=== PATIENT | male | born 1985 | race Caucasian/White ===

== ENCOUNTER 2023-03-30 13:16 | Outpatient (AMB) | payer OTHER, SELFPAY ==
--- NOTE | 2023-03-30 13:17 | A.OFFPC_ITS ---
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 by: Self / Same As Patient Allergies No Known Allergies Allergy (Verified 03/30/23 14:06) Medication List - Last Reconciled 03/30/23 by Bert Read MD No Known Home Meds Tobacco use date assessed: 03/30/23 Dental Screening Dental Screen Date: 03/30/23 Did you have a dental visit in the last 12 months?: Yes Did you have a dental problem in the last 6 months where you did not have access to dental care?: No Was dental information given to patient?: Patient has dentist [facility] Medical History No pertinent past medical history Surgical History Hx of inguinal herniorrhaphy Hx of wisdom tooth extraction Social History Housing: House Alcohol intake: current Alcohol intake frequency: holidays/special occasions only Patient Tobacco Use Status: Never used Tobacco e-Cigarette/Vaping Use: Never Used service: Yes Current occupational status: employed Current occupational exposures/hazards: No Cognitive needs: No Hearing needs: No Vision needs: No Questionnaire PHQ-9 Over the last 2 weeks, how often have you been bothered by any of the following problems? 1. Little interest or pleasure in doing things: not at all 2. Feeling down, depressed, or hopeless: not at all 3. Trouble falling or staying asleep, or sleeping too much: not at all 4. Feeling tired or having little energy: not at all 5. Poor appetite or overeating: not at all 6. Feeling bad about yourself - or that you are a failure or have let yourself or your family down: not at all 7. Trouble concentrating on things, such as reading the newspaper or watching television: not at all 8. Moving or speaking so slowly that other people could have noticed. Or the opposite - being so fidgety or restless that you have been moving around a lot more than usual: not at all 9. Thoughts that you would be better off or of hurting yourself in some way: not at all Total score: 0 Depression Screening Interpretation: Negative Depression Screening Done: Yes 47929 - PHQ-9 Billing: Yes Source: Developed by Drs. Jim Bloom, Maritza Gardner, Robel Fernandes and colleagues, with an educational enid from [employer]. Thrive Questionnaire Date Thrive assessed: 03/30/23 I am a: Patient What is your living situation today?: I have a steady place to live Within the past 12 months, did the food you bought not last and you didn't have the money to get more?: Never true Within the past 12 months, did you worry whether your food would run out before you got money to buy more?: Never true Do you have trouble paying for medicines?: No Do you have trouble getting transportation to medical appointments?: No Do you have trouble paying your heating and electricity bill?: No Do you have trouble taking care of your child, family member or friend?: No Do you have trouble with day-to-day activities such as bathing, preparing meals, shopping, managing finances, etc.?: No Are you currently unemployed and looking for a job?: No Are you interested in more education?: No Please select the resources that you would like help with: None Currently or been in a relationship where the following occur: no concerns reported THRIVE Score: 0 AUDIT C Alcohol Use Questionnaire (AUDIT-C) 1. How often do you have a drink containing alcohol?: Monthly or less 2. How many drinks containing alcohol do you have on a typical day when you are drinking?: 1 or 2 3. How often do you have six or more drinks on one occasion?: Never Total Score: 1 Score Reviewed/Action Taken: Yes WILLIAM-7 AMB Questionnaire WILLIAM-7 Date WILLIAM - 7 assessed: 03/30/23 Feeling nervous, anxious, or on edge: 0 = Not at all Not being able to stop or control worryin = Not at all Worrying too much about different things: 0 = Not at all Trouble relaxin = Not at all Being so restless that it is hard to sit still: 0 = Not at all Becoming easily annoyed or irritable: 0 = Not at all Feeling afraid as if something awful might happen: 0 = Not at all Total WILLIAM-7 score (0-4 normal; 5-9 mild; 10-14 moderate; 15-21 severe): 0 Source: Developed by Drs. Jim Bloom, Maritza Gardner, Robel Fernandes and colleagues, with an educational enid from [employer]. Review of Systems Const Denies chills, Denies fatigue, Denies fever(s), Denies headache(s), Denies malaise and Denies weakness Eyes Denies blurry vision, Denies change in vision, Denies irritation and Denies itchy eyes ENT Denies dysphagia, Denies dizziness, Denies otalgia, Denies headache(s), Denies nasal congestion, Denies neck pain, Denies odynophagia and Denies sore throat Card Denies chest pain, Denies rapid heart rate, Denies irregular heart rhythm, Denies palpitations and Denies dyspnea Resp Denies chest congestion, Denies cough, Denies dyspnea and Denies wheezing GI Denies abdominal pain, Denies bloating, Denies constipation, Denies dysphagia, Reports heartburn (on and off lately - taking OTC Tums PRN), Denies diarrhea, Denies nausea, Denies odynophagia and Denies vomiting Denies hematuria, Denies difficulty urinating, Denies dysuria, Denies urinary frequency and Denies urinary urgency Musc Denies back pain, Denies arthralgias, Denies joint swelling, Denies muscle weakness and Denies neck pain Skin/Breast Denies change in pigmentation, Denies lesions, Denies rash and Denies unusual bruising Neuro Denies dizziness, Denies headache(s), Denies paresthesias and Denies weakness Endo Denies fatigue and Denies palpitations Aller/Immun Denies itchy eyes and Denies wheezing Physical exam (Primary Care) Vital Signs: Last Vital Signs Pulse 76 03/30/23 13:18 BP 132/80 03/30/23 13:18 Pulse Ox 96 03/30/23 13:18 Oxygen Delivery Method Room Air 03/30/23 13:18 BMI result Body Mass Index 27.8 Tobacco/Smoking Status: Tobacco use Status Tobacco use date assessed 03/30/23 03/30/23 13:27 Patient Tobacco Use Status Never used Tobacco 03/30/23 13:27 e-Cigarette/Vaping Use Never Used 03/30/23 13:27 PHQ-9: PHQ-9 Score PHQ-9: Total score 0 03/30/23 13:27 Depression Screening Interpretation: Negative Thrive Assessment: Date of Thrive Assessment Date Thrive assessed 03/30/23 03/30/23 13:27 Currently or been in a relationship where the following occur: no concerns reported Const General: no acute distress, alert and awake Orientation/consciousness: patient oriented x3 HENMT Head: Yes normocephalic and Yes atraumatic Ears: external ears normal, TM's normal bilaterally and EAC's normal General nose exam: No nasal discharge present Face and sinus: Yes normal facial exam and Yes sinuses nontender Teeth and gingiva: dentition normal Throat: Yes posterior oropharynx normal and Yes tonsils normal (no TP congestion) Eyes Eyelids: Yes eyelids normal Conjunctivae: conjunctivae normal Pupils: Equal, round and reactive pupils present EOM: EOMs intact bilaterally Neck Neck: Yes no lymphadenopathy and Yes supple Thyroid: Thyroid normal Resp Auscultation: clear to auscultation bilaterally, no rales and no wheezes Cardio Rate: regular rate Rhythm: regular rhythm Heart sounds: no murmurs GI Palpation (GI): Soft to palpation, nontender and No hepatosplenomegaly present Auscultation: normal bowel sounds General: Yes no CVA tenderness Back/Spine/Pelvis Back: no CVA tenderness Thoracic/Lumbar Spine: thoracic and lumbar spine normal to inspection Skin Lesions: no lesions Rashes: no rashes Neuro General: patient oriented x3, moves all extremities, no focal motor deficits and CN's II-XI intact bilaterally Cranial nerves: Yes Equal, round and reactive pupils present Cognition (Neuro): normal cognition Gait exam (Neuro): Normal gait present Extrem General: Yes no clubbing, cyanosis or edema Assessment and Plan Assessment & Plan (1) Annual physical exam: Code(s): Z00.00 - Encounter for general adult medical examination without abnormal findings Orders: Orders Comprehensive [place]. Panel Fast Today E78.00 - Pure hypercholesterolemia, unspecified, Z00.00 - Encounter for general adult medical examination without abnormal findings TSH reflex Free T4 Today E78.00 - Pure hypercholesterolemia, unspecified, Z00.00 - Encounter for general adult medical examination without abnormal findings Complete Blood Count Auto Diff Today D64.9 - Anemia, unspecified, Z00.00 - Encounter for general adult medical examination without abnormal findings Lipid Panel Today E78.00 - Pure hypercholesterolemia, unspecified, Z00.00 - Encounter for general adult medical examination without abnormal findings UA CC w/rflx Micro + Cult Today R30.0 - Dysuria, Z00.00 - Encounter for general adult medical examination without abnormal findings Vitamin D 25-OH Total Today E55.9 - Vitamin D deficiency, unspecified, Z00.00 - Encounter for general adult medical examination without abnormal findings Coding Diagnoses Annual physical exam Z00.00
[2023-03-30 13:18] VITALS: BP 132/80; PULSE 76; O2SAT 96; BMI 27.8
== END 2023-03-30 14:30 | disposition home or self-care (01) ==
PROVIDERS: PCP Internal Medicine; Visit Provider Internal Medicine
DX: Z00.00 Encounter for general adult medical examination without abnormal findings (principal); E66.3 Overweight
CPT/HCPCS: 99499

== ENCOUNTER 2024-04-05 08:52 | Outpatient (AMB) | payer OTHER, SELFPAY ==
[2024-04-05 08:56] VITALS: BP 130/84; PULSE 81; O2SAT 97; BMI 29.8
--- NOTE | 2024-04-05 08:56 | A.OFFPC_ITS ---
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 by: Self / Same As Patient Allergies No Known Allergies Allergy (Verified 04/05/24 09:25) Medication List - Last Reconciled 04/05/24 by Bert Read MD No Known Home Meds Tobacco use date assessed: 04/05/24 Dental Screening Dental Screen Date: 04/05/24 Did you have a dental visit in the last 12 months?: Yes Did you have a dental problem in the last 6 months where you did not have access to dental care?: No Was dental information given to patient?: Patient has dentist HPI ANNUAL HPI Details Patient comes in today for his annual physical examination States that he feels okay He denies any headaches or dizziness Denies any chest pains, no shortness of breath No nausea/vomiting, no abdominal pain No change in bowel habits noted He denies any acute urinary symptoms States that his wants him to bring up the subject of his snoring heavily when he sleeps at night as it has been bothering her and keeping her up for the past year now Patient states that he does feel fatigued often draw today and feels like he needs a nap every now and then although he does not take that he has any trouble sleeping at night States that his only mentioned he sounds like he is gurgling at times when he is sleeping and snoring but has not mentioned to him about any apneic spells Lastly, patient adds that he has some recurrent eczema or fungal lesions on his feet as well as on his toenails and he would like to see Dermatology for this States that he mentioned this to his previous PCP a couple of years ago but his PCP only ended up prescribing him some antifungal treatment which he did not feel helped much [facility] Medical History (Updated 04/05/24 @ 11:53 by Bert Read MD) Overweight (BMI 25.0-29.9) Pure hypercholesterolemia Surgical History Hx of inguinal herniorrhaphy Hx of wisdom tooth extraction Social History Housing: House Alcohol intake: current Alcohol intake frequency: holidays/special occasions only Patient Tobacco Use Status: Never used Tobacco e-Cigarette/Vaping Use: Never Used service: Yes Current occupational status: employed Current occupational exposures/hazards: No Cognitive needs: No Hearing needs: No Vision needs: No Questionnaire PHQ-9 Over the last 2 weeks, how often have you been bothered by any of the following problems? 1. Little interest or pleasure in doing things: not at all 2. Feeling down, depressed, or hopeless: not at all 3. Trouble falling or staying asleep, or sleeping too much: not at all 4. Feeling tired or having little energy: not at all 5. Poor appetite or overeating: not at all 6. Feeling bad about yourself - or that you are a failure or have let yourself or your family down: not at all 7. Trouble concentrating on things, such as reading the newspaper or watching television: not at all 8. Moving or speaking so slowly that other people could have noticed. Or the opposite - being so fidgety or restless that you have been moving around a lot more than usual: not at all 9. Thoughts that you would be better off or of hurting yourself in some way: not at all Total score: 0 Depression Screening Interpretation: Negative Depression Screening Done: Yes 73654 - PHQ-9 Billing: Yes Source: Developed by Drs. Jim Bloom, Maritza Gardner, Robel Fernandes and colleagues, with an educational enid from [employer]. Thrive Questionnaire Date Thrive assessed: 04/05/24 I am a: Patient What is your living situation today?: I have a steady place to live Within the past 12 months, did the food you bought not last and you didn't have the money to get more?: Never true Within the past 12 months, did you worry whether your food would run out before you got money to buy more?: Never true Do you have trouble paying for medicines?: No Do you have trouble getting transportation to medical appointments?: No Do you have trouble paying your heating and electricity bill?: No Do you have trouble taking care of your child, family member or friend?: No Do you have trouble with day-to-day activities such as bathing, preparing meals, shopping, managing finances, etc.?: No Are you currently unemployed and looking for a job?: No Are you interested in more education?: No Please select the resources that you would like help with: None Currently or been in a relationship where the following occur: No concerns reported THRIVE Score: 0 AUDIT C Alcohol Use Questionnaire (AUDIT-C) 1. How often do you have a drink containing alcohol?: 2-3 times a week 2. How many drinks containing alcohol do you have on a typical day when you are drinking?: 1 or 2 3. How often do you have six or more drinks on one occasion?: Never Total Score: 3 Score Reviewed/Action Taken: Yes WILLIAM-7 AMB Questionnaire WILLIAM-7 Date WILLIAM - 7 assessed: 04/05/24 Feeling nervous, anxious, or on edge: 0 = Not at all Not being able to stop or control worryin = Not at all Worrying too much about different things: 0 = Not at all Trouble relaxin = Not at all Being so restless that it is hard to sit still: 0 = Not at all Becoming easily annoyed or irritable: 0 = Not at all Feeling afraid as if something awful might happen: 0 = Not at all Total WILLIAM-7 score (0-4 normal; 5-9 mild; 10-14 moderate; 15-21 severe): 0 Source: Developed by Drs. Jim Bloom, Maritza Gardner, Robel Fernandes and colleagues, with an educational enid from [employer]. Review of Systems Const Denies chills, Reports daytime sleepiness (occasionally), Denies difficulty sleeping, Denies fatigue, Denies fever(s), Denies headache(s), Denies malaise, Reports snoring, Denies stops breathing during sleep (although his mentions that he gurgles a lot when snoring/sleeping) and Denies weakness Eyes Denies blurry vision, Denies change in vision, Denies irritation and Denies itchy eyes ENT Denies dysphagia, Denies dizziness, Denies otalgia, Denies headache(s), Denies nasal congestion, Denies neck pain, Denies odynophagia and Denies sore throat Card Denies chest pain, Denies rapid heart rate, Denies irregular heart rhythm, Denies palpitations and Denies dyspnea Resp Denies chest congestion, Denies cough, Denies dyspnea, Reports snoring and Denies wheezing GI Denies abdominal pain, Denies bloating, Denies constipation, Denies dysphagia, Denies heartburn, Denies diarrhea, Denies nausea, Denies odynophagia and Denies vomiting Denies hematuria, Denies difficulty urinating, Denies dysuria, Denies urinary frequency and Denies urinary urgency Musc Denies back pain, Denies arthralgias, Denies joint swelling, Denies muscle weakness and Denies neck pain Skin/Breast Denies change in pigmentation, Denies lesions, Reports rash (recurrent on both feet; thickened/discolored toenails) and Denies unusual bruising Neuro Denies dizziness, Denies headache(s), Denies paresthesias and Denies weakness Endo Denies fatigue and Denies palpitations Aller/Immun Denies itchy eyes and Denies wheezing Physical exam (Primary Care) Vital Signs: Last Vital Signs Pulse 81 04/05/24 08:56 BP 130/84 04/05/24 08:56 Pulse Ox 97 04/05/24 08:56 Oxygen Delivery Method Room Air 04/05/24 08:56 BMI result Body Mass Index 29.8 Tobacco/Smoking Status: Tobacco use Status Tobacco use date assessed 04/05/24 04/05/24 09:03 Patient Tobacco Use Status Never used Tobacco 04/05/24 09:03 e-Cigarette/Vaping Use Never Used 04/05/24 09:03 PHQ-9: PHQ-9 Score PHQ-9: Total score 0 04/05/24 09:29 Depression Screening Interpretation: Negative Thrive Assessment: Date of Thrive Assessment Date Thrive assessed 04/05/24 04/05/24 09:03 Currently or been in a relationship where the following occur: No concerns reported Const General: no acute distress, alert and awake Orientation/consciousness: patient oriented x3 HENMT Head: Yes normocephalic and Yes atraumatic Ears: external ears normal, TM's normal bilaterally and EAC's normal General nose exam: No nasal discharge present Face and sinus: Yes normal facial exam and Yes sinuses nontender Teeth and gingiva: dentition normal Throat: Yes posterior oropharynx normal and Yes tonsils normal (no TP congestion) Eyes Eyelids: Yes eyelids normal Conjunctivae: conjunctivae normal Pupils: Equal, round and reactive pupils present EOM: EOMs intact bilaterally Neck Neck: Yes no lymphadenopathy and Yes supple Thyroid: Thyroid normal Resp Auscultation: clear to auscultation bilaterally, no rales and no wheezes Cardio Rate: regular rate Rhythm: regular rhythm Heart sounds: no murmurs GI Palpation (GI): Soft to palpation, nontender and No hepatosplenomegaly present Auscultation: normal bowel sounds General: Yes no CVA tenderness Back/Spine/Pelvis Back: no CVA tenderness Thoracic/Lumbar Spine: thoracic and lumbar spine normal to inspection Skin Lesions: no lesions Rashes: no rashes Neuro General: patient oriented x3, moves all extremities, no focal motor deficits and CN's II-XI intact bilaterally Cranial nerves: Yes Equal, round and reactive pupils present Cognition (Neuro): normal cognition Gait exam (Neuro): Normal gait present Extrem General: Yes no clubbing, cyanosis or edema Coding Level of Care Code Est Pt Prev Care 18-39y([id number]) Diagnoses Annual physical exam Z00.00 Pure hypercholesterolemia E78.00 Loud snoring R06.83 Tinea pedis, unspecified laterality B35.3 Laterality: unspecified laterality Overweight (BMI 25.0-29.9) E66.3 Additional Codes PHQ-9 - 31028 - PHQ-9 Billing: Yes ([id number]) Assessment & Plan Assessment & Plan (1) Annual physical exam: Code(s): Z00.00 - Encounter for general adult medical examination without abnormal findings Category: Medical Plan: Check labs He currently has no other recommended screening tests due at this time (2) Pure hypercholesterolemia: Code(s): E78.00 - Pure hypercholesterolemia, unspecified Category: Medical Plan: Have advised/reminded patient that his cholesterol level, particularly his LDL cholesterol, was elevated on his labs done last year Reinforced low cholesterol diet Will have him recheck his labs and fasting lipids for follow up (3) Loud snoring: Code(s): R06.83 - Snoring Category: Medical Plan: Patient also reports feeling fatigued often, with (+) daytime somnolence at times He scored a 3 on his ST[employer] questionnaire Will refer him to Sleep Medicine for further evaluation and management (4) Tinea pedis: Code(s): B35.3 - Tinea pedis Category: Medical Qualifiers: Laterality: unspecified laterality Qualified Code(s): B35.3 - Tinea pedis Plan: Her request, we will refer him to Dermatology for further evaluation and management (5) Overweight (BMI 25.0-29.9): Code(s): E66.3 - Overweight Category: Medical Plan: Reinforced diet/exercise as tolerated/lose weight Plan To return in 1 year for his next annual physical examination Orders: Orders Comprehensive [place]. Panel Fast Today E78.00 - Pure hypercholesterolemia, unspecified, Z00.00 - Encounter for general adult medical examination without abnormal findings TSH reflex Free T4 Today E78.00 - Pure hypercholesterolemia, unspecified, Z00.00 - Encounter for general adult medical examination without abnormal findings UA CC w/rflx Micro + Cult Today R30.0 - Dysuria, Z00.00 - Encounter for general adult medical examination without abnormal findings Vitamin D 25-OH Total Today E55.9 - Vitamin D deficiency, unspecified, Z00.00 - Encounter for general adult medical examination without abnormal findings Complete Blood Count Auto Diff Today D64.9 - Anemia, unspecified, Z00.00 - Encounter for general adult medical examination without abnormal findings Lipid Panel Today E78.00 - Pure hypercholesterolemia, unspecified, Z00.00 - Encounter for general adult medical examination without abnormal findings Referrals Sleep Medicine Referral R06.83 - Snoring, R53.83 - Other fatigue Dermatology Referral B35.3 - Tinea pedis, L60.1 - Onycholysis
--- OUTSIDE RECORDS SUMMARY | 2024-04-05 09:22 | XMS_ITS | Continuity of Care Document ---
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 It does not include entries that were removed or entered in error. Problem Status Onset Date Problem Type Date of Resolution Comments Source ASSESSMENT, POST-DEPLOYMENT, DOCUMENTED ON [id number] Inactive 08/12/2018 Condition DoD superficial injury Inactive 06/14/2009 Condition DoD Dermatitis, unspecified Active Condition DoD Patient Education - Injury Prevention Inactive Condition DoD disorder of tonsil tonsillitis Inactive Condition DoD Allergies, Adverse Reactions, Alerts Combined list of allergies from Department of Defense and Veterans Affairs facilities. It does not include entries that were removed or entered in error. Substance Category Reaction Severity Reaction type Status Date Reported Comments Source No Known Allergies Drug allergy (disorder) active 04/16/2006 [facility] [place] [address] Immunizations Combined list of available immunizations from the Department of Defense and Veterans Affairs facilities. Immunization Series Date Given Administered By Site Reaction Lot Number CVX Code Drug Contract Mail Carrier Status Comments Source influenza virus vaccine, inactivated 2023 RUSS Yanes caridad, left (delt oid) [id number] [employer], A [employer] complet ed influenza virus vaccine, inactivat ed 12/15/23 Given 8203R-1 04 MDG Influenza, injectable, quadrivalent, preservative free 0 2021 [id number] 150 Amaranth MedicalKline (SKB) complet ed Influenza , injectabl e, quadrival ent, preservat cindy free DoD tetanus toxoid, reduced diphtheria toxoid, and acellular pertu is vaccine, adsorbed 2 2021 [id number] Sanofi Pasteur (PMC) complet ed tetanus toxoid, reduced diphtheri a toxoid, and acellular pertussis vaccine, adsorbed DoD influenza, injectable, quadrivalent 2020 [id number] 158 GlaxAqdotKli nd complet ed influenza , injectabl e, quadrival ent 12/23/20 Given Ambulat ory Pharmac y influenza, injectable, quadrivalent, contains preservative 11 2020 [id number] 158 [facility] (SKB) complet ed influenza , injectabl e, quadrival ent, contains preservat cindy DoD COVID Vaccine Moderna 2020 [id number] complet ed COVID Vaccine Moderna 03/28/20 Given Ambulat ory Pharmac y SARS-COV-2 (COVID-19) vaccine, mRNA, spike protein, LNP, preservative free, 100 mcg or 50 mcg dose 2 2020 [id number] 207 Moderna [email or web address] (MOD) complet ed SARS-COV- 2 (COVID-19 ) vaccine, mRNA, spike protein, LNP, preservat cindy free, 100 mcg or 50 mcg dose DoD COVID Vaccine Moderna 2020 [id number] complet ed COVID Vaccine Moderna 02/29/20 Given Ambulat ory Pharmac y SARS-COV-2 (COVID-19) vaccine, mRNA, spike protein, LNP, preservative free, 100 mcg or 50 mcg dose 1 2020 [id number] 207 Moderna US, Inc. (MOD) complet ed SARS-COV- 2 (COVID-19 ) vaccine, mRNA, spike protein, LNP, preservat cindy free, 100 mcg or 50 mcg dose DoD influenza, injectable, quadrivalent 2019 [id number] 158 complet ed influenza , injectabl e, quadrival ent 12/02/19 Given Ambulat ory Pharmac y influenza, injectable, quadrivalent, contains preservative 1 2019 158 Transcribed (TRS) complet ed influenza , injectabl e, quadrival ent, contains preservat cindy DoD influenza, injectable, quadrivalent- pf 2018 [id number] 150 Seqirus complet ed influenza , injectabl e, quadrival ent-pf 11/20/18 Given Ambulat ory Pharmac y Influenza, injectable, quadrivalent, preservative free 1 2018 [id number] 150 Seqirus (SEQ) complet ed Influenza , injectabl e, quadrival ent, preservat cindy free DoD typhoid Vi capsular polysaccharid e vac 2017 [id number] 101 sanofi pasteur complet ed typhoid Vi capsular polysacch aride vac 12/19/17 Given Ambulat ory Pharmac y anthrax vaccine 2017 [id number] 24 Emergent Biosolutions complet ed anthrax vaccine 12/19/17 Given Ambulat ory Pharmac y anthrax vaccine 5 2017 [id number] Emergent Bio[employer]ense Operations [place] (MIP) complet ed anthrax vaccine DoD typhoid Vi capsular polysaccharid e vaccine 3 2017 [id number] 101 Sanofi Pasteur (PMC) complet ed typhoid Vi capsular polysacch aride vaccine DoD measles virus vaccine 0 2017 05 () Not Given measles virus vaccine DoD rubella virus vaccine 0 2017 06 () Not Given rubella virus vaccine DoD mumps virus vaccine 0 2017 07 () Not Given mumps virus vaccine DoD varicella virus vaccine 0 2017 21 () Not Given varicella virus vaccine DoD influenza, injectable, quadrivalent 2017 [id number] Seqirus complet ed influenza , injectabl e, quadrival ent 11/29/17 Given Ambulat ory Pharmac y influenza, injectable, quadrivalent, contains preservative 13 2017 [id number] 158 Seqirus (SEQ) comple t ed influenza , injectabl e, quadrival ent, contains preservat cindy DoD Influenza, inj, MDCK, quadrivalent- pf 2016 [id number] 171 Seqirus complet ed Influenza , inj, MDCK, quadrival ent-pf 12/20/16 Given Ambulat ory Pharmac y Influenza, injectable, Madin Alaina Canine Kidney, preservative free, quadrivalent 1 2016 [id number] 171 Seqirus (SEQ) comple t ed Influenza , injectabl e, Madin Alaina Canine Kidney, preservat cindy free, quadrival ent DoD influenza, seasonal, injectable-pf 2015 [id number] 140 Seqirus complet ed influenza , seasonal, injectabl e-pf 12/23/15 Given Ambulat ory Pharmac y Influenza, seasonal, injectable, preservative free 11 2015 [id number] 140 Seqirus (SEQ) comple t ed Influenza , seasonal, injectabl e, preservat cindy free DoD influenza, live, intranasal,qu adrivalent 2014 [id number] 149 Medimmune Inc comple t ed influenza , live, intranasa l,quadriv alent 12/23/14 Given Ambulat ory Pharmac y influenza, live, intranasal, quadrivalent 10 2014 [id number] 149 L[employer], Inc. (MED) complet ed influenza , live, intranasa l, quadrival ent DoD influenza, injectable, quadrivalent- pf 2013 [id number] 150 ID Biomedical comple t ed influenza , injectabl e, quadrival ent-pf 01/21/14 Given Ambulat ory Pharmac y Influenza, injectable, quadrivalent, preservative free 1 2013 [id number] 150 (IDB) complet ed Influenza , injectabl e, quadrival ent, preservat cindy free DoD typhoid Vi capsular polysaccharid e vac 2013 [id number] 101 sanofi pasteur complet ed typhoid Vi capsular polysacch aride vac 02/27/13 Given Ambulat ory Pharmac y anthrax vaccine 2013 [id number] 24 Emergent Biosolutions complet ed anthrax vaccine 02/27/13 Given Ambulat ory Pharmac y anthrax vaccine 4 2013 [id number] 24 [employer]gent [employer] [place] (MIP) complet ed anthrax vaccine DoD typhoid Vi capsular polysaccharid e vaccine 1 2013 [id number] 101 Sanofi Pasteur (PMC) complet ed typhoid Vi capsular polysacch aride vaccine DoD influenza, seasonal, injectable 2012 [id number] 141 CSL Behring complet ed influenza , seasonal, injectabl e 12/18/12 Given Ambulat ory Pharmac y Influenza, seasonal, injectable 8 2012 [id number] 141 CSL Biotherapies, Inc. (CSL) complet ed Influenza , seasonal, injectabl e DoD tetanus, diphtheria, acellular pertu is 2011 [id number] 115 sanofi pasteur complet ed tetanus, diphtheri a, acellular pertussis 11/29/11 Given Ambulat ory Pharmac y influenza, seasonal, injectable 2011 [id number] 1A 141 CSL Behring complet ed influenza , seasonal, injectabl e 11/29/11 Given Ambulat ory Pharmac y tetanus toxoid, reduced diphtheria toxoid, and acellular pertu is vaccine, adsorbed 0 2011 [id number] 115 Sanofi Pasteur (PMC) complet ed tetanus toxoid, reduced diphtheri a toxoid, and acellular pertussis vaccine, adsorbed DoD Influenza, seasonal, injectable 7 2011 [id number] 141 FOBO Snip[employer]Code, Inc. (CS) complet ed Influenza , seasonal, injectabl e DoD influenza, seasonal, injectable-pf 2010 [id number] 140 sanofi pasteur complet ed influenza , seasonal, injectabl e-pf 11/17/10 Given Ambulat ory Pharmac y Influenza, seasonal, injectable, preservative free 1 2010 [id number] 140 Sanofi Pasteur (PMC) complet ed Influenza , seasonal, injectabl e, preservat cindy free DoD tuberculin purified protein derivative 2010 [id number] 96 sanofi pasteur complet ed tuberculi n purified protein derivativ e 05/04/10 Given Ambulat ory Pharmac y influenza virus vaccine,split 2009 [id number] 15 sanofi pasteur complet ed influenza virus vaccine,s plit 01/20/10 Given Ambulat ory Pharmac y influenza virus vaccine, split virus (incl. purified surface antigen)-reti red CODE 1 2009 [id number] 15 Sanofi Pasteur (PMC) complet ed influenza virus vaccine, split virus (incl. purified surface antigen)- retired CODE DoD anthrax vaccine 2009 [id number] Emergent Biosolutions complet ed anthrax vaccine 06/14/09 Given Ambulat ory Pharmac y anthrax vaccine 3 2009 [id number] Emergent [employer] [place] ([facility]) complet ed anthrax vaccine DoD Novel influenza-H1N 1-09, injectable 2009 [id number] 127 Novartis Pharmaceutica complet ed Novel influenza -X8V7-07, injectabl e 03/01/09 Given Ambulat ory Pharmac y Novel influenza-H1N 1-09, injectable 1 2009 [id number] 1 127 Novartis Pharmaceutica l [place]. (NOV) complet ed Novel influenza -C1R7-26, injectabl e DoD vaccinia (smallpox) vaccine 2008 VV04-00 3A 75 [employer] complet ed vaccinia (smallpox ) vaccine 01/10/09 Given Ambulat ory Pharmac y vaccinia (smallpox) vaccine 1 2008 VV04-00 3A 75 [facility] complet ed vaccinia (smallpox ) vaccine DoD anthrax vaccine 2008 [id number] 24 Emergent Biosolutions complet ed anthrax vaccine 12/24/08 Given Ambulat ory Pharmac y anthrax vaccine 2 2008 [id number] 24 [employer]gent [employer] [place] (MIP) complet ed anthrax vaccine DoD influenza virus vaccine, live 2008 [id number] 111 Medimmune Inc comple t ed influenza virus vaccine, live 11/18/08 Given Ambulat ory Pharmac y typhoid Vi capsular polysaccharid e vac 2008 [id number] 101 sanofi pasteur complet ed typhoid Vi capsular polysacch aride vac 11/18/08 Given Ambulat ory Pharmac y anthrax vaccine 2008 [id number] Emergent Biosolutions complet ed anthrax vaccine 11/18/08 Given Ambulat ory Pharmac y anthrax vaccine 1 2008 [id number] [employer] [place] (MIP) complet ed anthrax vaccine DoD typhoid Vi capsular polysaccharid e vaccine 1 2008 [id number] 101 Sanofi Pasteur (PMC) complet ed typhoid Vi capsular polysacch aride vaccine DoD influenza virus vaccine, live, attenuated, for intranasal use 1 2008 [id number] 111 Yamliune, Inc. (MED) complet ed influenza virus vaccine, live, attenuate d, for intranasa l use DoD influenza virus vaccine, live 2007 [id number] 111 Pet[employer] Inc comple t ed influenza virus vaccine, live 12/18/07 Given Ambulat ory Pharmac y influenza virus vaccine, live, attenuated, for intranasal use 1 2007 [id number] 111 Yamliune, Inc. (MED) complet ed influenza virus vaccine, live, attenuate d, for intranasa l use DoD influenza virus vaccine, live 2007 [id number] 111 MediEdaytownune Inc comple t ed influenza virus vaccine, live 02/20/07 Given Ambulat ory Pharmac y influenza virus vaccine, live, attenuated, for intranasal use 1 2007 [id number] 111 MedIEdaytownune, Inc. (MED) complet ed influenza virus vaccine, live, attenuate d, for intranasa l use [facility] hepatitis A adult vaccine 2006 [id number] 52 Merck & Company Inc complet ed hepatitis A adult vaccine 10/11/06 Given Ambulat ory Pharmac y hepatitis B adult vaccine 2006 [id number] 43 Merck & Company Inc complet ed hepatitis B adult vaccine 10/11/06 Given Ambulat ory Pharmac y hepatitis B vaccine, adult dosage 3 2006 [id number] 43 Merck (MSD) complet ed hepatitis B vaccine, adult dosage DoD hepatitis A vaccine, adult dosage 3 2006 [id number] 52 Merck (MSD) complet ed hepatitis A vaccine, adult dosage DoD hepatitis A-hepatitis B vaccine 2006 [id number] [id number] 104 GlaxoSmithKli ne complet ed hepatitis A-hepatit is B vaccine 05/02/06 Given Ambulat ory Pharmac y hepatitis A and hepatitis B vaccine 2 2006 [id number] 0BA 104 SmithKline (SKB) complet ed hepatitis A and hepatitis B vaccine DoD hepatitis A-hepatitis B vaccine 2006 [id number] [id number] 104 GlaxoSmithKli ne complet ed hepatitis A-hepatit is B vaccine 04/01/06 Given Ambulat ory Pharmac y measles, mumps and rubella virus vaccine 1 2006 03 () Not Given measles, mumps and rubella virus vaccine DoD varicella virus vaccine 1 2006 21 () Not Given varicella virus vaccine DoD hepatitis A and hepatitis B vaccine 1 2006 [id number] 8AA 104 SmithKline (SKB) complet ed hepatitis A and hepatitis B vaccine DoD meningococcal A,C,Y,W-135 (MCV4P) 2006 [id number] 114 sanofi pasteur complet ed meningoco ccal A,C,Y,W-1 35 (MCV4P) 03/26/06 Given Ambulat ory Pharmac y influenza virus vaccine,split 2006 [id number] 15 sanofi pasteur complet ed influenza virus vaccine,s plit 03/26/06 Given Ambulat ory Pharmac y poliovirus vaccine, inactivated 2006 Z0018 10 sanofi pasteur complet ed polioviru s vaccine, inactivat ed 03/26/06 Given Ambulat ory Pharmac y tetanus-dipht h toxoids (Td) adult/adol 2006 [id number] 09 sanofi pasteur complet ed tetanus-d iphth toxoids (Td) adult/ado l 03/26/06 Given Ambulat ory Pharmac y tuberculin purified protein derivative 2006 [id number] 96 sanofi pasteur complet ed tuberculi n purified protein derivativ e 03/26/06 Given Ambulat ory Pharmac y tetanus and diphtheria toxoids, adsorbed, preservative free, for adult use (2 Lf of tetanus toxoid and 2 Lf of diphtheria toxoid) 1 2006 [id number] 09 Sanofi Pasteur ([facility]) complet ed tetanus and diphtheri a toxoids, adsorbed, preservat cindy free, for adult use (2 Lf of tetanus toxoid and 2 Lf of diphtheri a toxoid) DoD poliovirus vaccine, inactivated 1 2006 Z0018 10 Sanofi Pasteur ([facility]) complet ed polioviru s vaccine, inactivat ed DoD influenza virus vaccine, split virus (incl. purified surface antigen)-reti red CODE 1 2006 [id number] 15 Sanofi Pasteur (PMC) complet ed influenza virus vaccine, split virus (incl. purified surface antigen)- retired CODE DoD meningococcal polysaccharid e (groups A, C, Y and W-135) diphtheria toxoid conjugate vaccine (MCV4P) 1 2006 [id number] 114 Sanofi Pasteur (PMC) complet ed meningoco ccal polysacch aride (groups A, C, Y and W-135) diphtheri a toxoid conjugate vaccine (MCV4P) DoD Results Combined list of recent chemistry, hematology and other laboratory results from Department of Defense and Veterans Affairs, ranging from 15 months to all on record, depending upon the facility. Order Name Results Value Reference Range Date Interpretation Specimen Comments Source Infectiou s Disease HIV-1/O/2 Non-Reac tive 1 (05/02/23 11:36 AM) 05/01 N Interpretiv e Data: INTERPRETAT ION: This method is a screening procedure for the detection of HIV p24 Antigen and Antibodies to HIV-1, including Group O, and/or HIV-2. NON-REACTIV E: HIV-1 antigen and HIV-1 / HIV-2 antibodies were not detected. No laboratory evidence of HIV infection. A negative test result does not exclude the possibility of exposure to or infection with HIV. HIV antibodies and/or p24 antigen may be undetectabl e in some stages of the infection and in some clinical conditions. If acute HIV infection is suspected, consider submitting another specimen to a reference laboratory for HIV-1 RNA. SCREEN REACTIVE - CONFIRMATIO N TO FOLLOW: Possible presence of HIV-1antibo dies, HIV-2 antibodies and/or HIV-1 p24 antigen. Specimen will reflex to the confirmatio n testing that fulfills the Center for Disease Control and Prevention' s HIV diagnostic algorithm. Refer to [facility] Lab Guide for additional information : [email or web address]/ [email or web address] x Testing performed by Kim jarrett. 5600A-U K1 [employer] EPILAB Miscellan eous Sendouts Repository Sample Received (05/02/23 11:36 AM) 05/01 N 5600A-U K1 [employer] EPILAB Vital Signs Combined list of inpatient and outpatient Vital Signs from Department of Defense and Veterans Affairs, ranging from 12 months to all on record, depending upon the facility. Vital Sign Value Date Comments Source Systolic Blood Pressure 134 mm[Hg] 05/02/2023 15:25:00 8203R-104 MDG Diastolic Blood Pressure 87 mm[Hg] 05/02/2023 15:25:00 8203R-104 MDG BP Site Right arm 05/02/2023 15:25:00 8203R -104 MDG Peripheral Pulse Rate 90 bpm 05/02/2023 15:25:00 8203R-104 MDG Mean Arterial Pressure, Calc 103 mm[Hg] 05/02/2023 15:25:0 0 8203R-104 MDG Encounters Combined list of: 1) Encounters from Department of Veterans Affairs facilities going backup to the last 18 months, not all VA inpatient encounters are included; 2) Encounters from the Department of Defense facilities going backup to 280 months. Location Location Details Encounter Type Encounter Number Reason For Visit Attending Provider ADM Date DC Date Status Disposition Source [place] [address](Tony hancock [facility]) OUTPATIENT [id number] Fever RODERICK SR 04/16 Released with Work/Duty Limitations FIORD[facility]IZ[facility] [place] [address](Katie leary [facility]) [facility]) OUTPATIENT [id number] wft OFELIA SORENSEN 05/21 Released w/o Limitations [employer](P hysical Therapy [facility]) [facility] Facility OUTPATIENT [id number] 06/15 Released w/o Limitations [facility]ilit [facility] [place] [address](AFN G 104 Med Sq-PH) OUTPATIENT [id number] Notes Entered by: TIM BRENDA LICEA ROSMERY GRANTINA 20 Dec 2016 1328 ------- ------- ------- ------- -- Annual 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 FREIDA ELLIS 12/20 Released w/o Limitations [facility] [place] [address](A FNG 104 Med Sq-PH) [place] [address](AFN G 104 Med Sq-FM) OUTPATIENT [id number] Notes Entered by: STU CHEUNG 29 Dec 2016 1147 ------- ------- ------- ------- -- STU LAUREN 12/29 [facility]itations [facility] [place] [place] [address](A FNG 104 Med Sq-FM) [facility] [place] [address](AFN G 104 Med Sq-FM) OUTPATIENT [id number] Notes Entered by: EMRE PADGETT 05 Oct 2017 1446 ------- ------- ------- ------- -- LYUBOV ALANIZ 10/05 Released w/o Limitations [facility] [place] [address](A FNG 104 Med Sq-FM) [facility] [place] [address](AFN G 104 Med Sq-FM) OUTPATIENT [id number] Notes Entered by: MALACHI LEUNG 22 Oct 2017 1017 ------- ------- ------- ------- -- FF FREIDA Rsoa 10/22 Released w/o Limitations [facility] [place] [address](A FNG 104 Med Sq-FM) [facility] [place] [address](AFN G 104 Med Sq-FM) OUTPATIENT [id number] Notes Entered by: LALO ALCARAZ R 19 Dec 2017 0948 ------- ------- ------- ------- -- [facility] JUVENTINO ALCARAZ 12/19 Released w/o Limitations [facility] [place] [address](A FNG 104 Med Sq-FM) [facility] Facility OUTPATIENT [id number] Theater Provider 08/12 Released w/o Limitations Theater [facility] y [employer](Pollard scom [facility] Team A) OUTPATIENT [id number] DEVEN HAMMOND 10/08 Released w/o Limitations [facility](H anscom [facility] Team A) [facility] [place] [address](AFN G 104 Med Sq-FM) OUTPATIENT [id number] Notes Entered by: STU CHEUNG 03 Nov 2018 1005 ------- ------- ------- ------- -- STU LAUREN 11/03 Released w/o Limitations [facility] [place] [address](A FNG 104 Med Sq-FM) [facility] [place] [address](AFN G 104 Med Sq-FM) OUTPATIENT [id number] Notes Entered by: BRENDA VELASCO 19 Apr 2019 0826 ------- ------- ------- ------- -- Annual Holter Scanning Technician TIFFANIE Renee 04/18 Released w/o Limitations [facility] [place] [address](A FNG 104 Med Sq-FM) [facility] [place] [address](AFN G 104 Med Sq-FM) OUTPATIENT [id number] Notes Entered by: AKASH HERRING P 19 Apr 2019 1715 ------- ------- ------- ------- -- TIFFANIE RIZVI P 04/18 Released w/o Limitations [facility] [place] [address](A FNG 104 Med Sq-FM) [facility] [place] [address](AFN G 104 Med Sq-FM) OUTPATIENT [id number] Notes Entered by: STU CHEUNG 24 Mar 2020 1241 ------- ------- ------- ------- -- STU Sorto 03/24 Released w/o Limitations [facility] [place] [address](A FNG 104 Med Sq-FM) [facility] [place] [address](AFN G 104 Med Sq-FM) OUTPATIENT [id number] Notes Entered by: LALO ALCARAZ R 27 Apr 2020 1300 ------- ------- ------- ------- -- JUVENTINO AMEZQUITA R 04/27 Released w/o Limitations [facility] [place] [place] [address](A FNG 104 Med Sq-FM) [facility] [place] [address](AFN G 104 Med Sq-FM) OUTPATIENT [id number] Notes Entered by: TIMOTEO MCKEON 27 Apr 2021 0632 ------- ------- ------- ------- -- Firefig hter STU Grant 04/27 Released w/o Limitations [facility] [place] [address](A FNG 104 Med Sq-FM) [facility] [place] [address](AFN G 104 Med Sq-FM) OUTPATIENT [id number] STU CHEUNG 04/19 Released w/o Limitations [facility] [place] [place] [address](A FNG 104 Med Sq-FM) [facility] [place] [address](AFN G 104 Med Sq-FM) OUTPATIENT [id number] Notes Entered by: ADWOA DAVIS 19 Apr 2022 1729 ------- ------- ------- ------- -- SUSHANT Boudreaux 04/19 Released w/o Limitations [facility] [place] [address](A FNG 104 Med Sq-FM) 8203R-104 MDG Outpatient [id number] MARLI QUINONES 05/19 Discharge Disposition: Home or Self Care 8203R-1 04 MDG 8203R-104 MDG Care Not Rendered [id number] 06/07 Discharge Disposition: Home or Self Care 8203R-1 04 MDG 8203R-104 MDG Care Not Rendered [id number] 07/06 Discharge Disposition: Home or Self Care 8203R-1 04 MDG 8203R-104 MDG Between Visit [id number] 10/07 Discharge Disposition: Home or Self Care 8203R-1 04 MDG 8203R-104 MDG Mass Vaccine [id number] 12/14 8203R-1 04 MDG Procedures Combined list of: 1) Procedures from Department of Veterans Affairs facilities going back up to thelast 18 months, not all VA non-surgical procedures are included; 2) All procedures from the Department of Defense facilities. Procedure Procedure Type Code Date Perfomer Comments Sourc e No data available for this section Ambulato ry Pharmacy Preventive Medicine Administration Of Health Risk Questionnaire Patient-Focused Preventive Medicine Administration Of Health Risk Questionnaire Patient-Focused 76387 10/12/19 19 DEVEN YEUNG [facility] Physical Medicine - Group Physical Therapy [facility] Physical Medicine - Group Physical Therapy Session [id number] 05/22/19 07 OFELIA SORENSEN [facility] Screening Test Of Visual Acuity, Quantitative, Bilateral Screening Test Of Visual Acuity, Quantitative, Bilateral 57067 TIFFANIE HERRING [facility] Threshold Audiogram (Pure Tone) Threshold Audiogram (Pure Tone) 12841 TIFFANIE HERRING [facility] Spirometry Spirometry 63455 TIFFANIE HERRING [facility] Visual Function Screening Visual Function Screening 28156 SUSHANT WILSON [facility] THERAPEUTIC PROCEDURE(S), GROUP (2 OR MORE INDIVIDUALS) 05/22/19 07 [facility] ADMINISTRATION OF PATIENT-FOCUSED HEALTH RISK ASSESSMENT INSTRUMENT (EG, HEALTH HAZARD APPRAISAL) WITH SCORING AND DOCUMENTATION, PER STANDARDIZED INSTRUMENT 10/12/19 19 [facility] VIS FUNCT SCREEN,AUTOMAT/DENYS I-AUTOMAT BILAT QUANT DETERM VISUAL ACUITY,OCULAR ALIGN,COLOR VISION,PSEUDOISOCH ROMAT PLATES,& FIELD VIS (MAY INC ALL/SOME SCRN DETERM FOR CONTRAST SENSITIV,VIS UND GLARE) 04/20/19 23 [facility] SPIROMETRY, INCLUDING GRAPHIC RECORD, TOTAL AND TIMED VITAL CAPACITY, EXPIRATORY FLOW RATE MEASUREMENT(S), WITH OR WITHOUT MAXIMAL VOLUNTARY VENTILATION 04/19/19 20 [facility] THERAPEUTIC, PROPHYLACTIC OR DIAGNOSTIC INJECTION (SPECIFY SUBSTANCE OR DRUG); SUBCUTANEOUS OR INTRAMUSCULAR 04/01/19 07 [facility] Social History Combined list of available smoking, tobacco, and other social history from Department of Defense and Veterans Affairs facilities. Social History Type Response Date Comment Sourc e This section is an empty social history section. DoD Assessment and Plan Combined list of future care activities from Department of Defense and Veterans Affairs facilities (e.g., assessment and plan notes, appointments, orders, and referrals). Additional future care activities may be listed in the Plan of Care section. 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 Member is medically clear.? Member reports bump on back of head; appears to be lipoma by exam.? SM encouraged to follow up if he desires for it to be removed or if it becomes painful or rapidly enlarging. The following documents were reviewed:? FF medical history questionnaire: unremarkable? PFT: FEV1 71.3%, FVC 67.5% - SM and prior PE documentation both note consistently low FEV1 and FVC, will follow up with member about need for additional workup.? No symptoms or duty limitations noted. Audiogram: H-2, L ear STS ? ? ? 04/05/2024 8203R-104 MDG Functional Status Combined list of recent functional and cognitive assessments recorded at Department of Defense and Veterans Affairs (VA).VA Functional [place] Measurement (FIM) Scale: 1 = Total Assistance (Subject = 0% +), 2 = Maximal Assistance (Subject = 25% +), 3 = Moderate Assistance (Subject = 50% +), 4 = Minimal Assistance (Subject = 75% +), 5 = Supervision, 6 = Modified [place] (Device), 7 = Complete [place] (Timely, Safely). Assessment Date/Time Source Assessment Type Assessment Skill Assessment Score Assessment Details No data available for this section
== END 2024-04-05 09:49 | disposition home or self-care (01) ==
PROVIDERS: PCP Internal Medicine; Visit Provider Internal Medicine
DX: Z00.00 Encounter for general adult medical examination without abnormal findings (principal); E78.00 Pure hypercholesterolemia, unspecified; R06.83 Snoring; B35.3 Tinea pedis; E66.3 Overweight

== ENCOUNTER → 2024-04-05 08:52 | Outpatient (BNVA) | payer OTHER, SELFPAY | PROVIDERS: PCP Internal Medicine; Visit Provider Internal Medicine | DX: Z00.00 Encounter for general adult medical examination without abnormal findings (principal); E78.00 Pure hypercholesterolemia, unspecified; R06.83 Snoring; B35.3 Tinea pedis; E66.3 Overweight | CPT/HCPCS: 96127 ==

== ENCOUNTER 2024-05-04 14:54 | Outpatient (AMB) | payer OTHER, SELFPAY ==
--- NOTE | 2024-05-04 15:01 | MHC.OFFVIS ---
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 handed male referred to us by Dr. Read, PCP. He goes to bed at 10pm and wakes up at 6am, no bathroom breaks. His told him he needs to be evaluated for snoring. He sleeps on his r. side then tosses to the back and starts to snore loudly, and makes a gurgling sound. He has tried nose strips. He talks in his sleep, acts out his dream, and has vivid dreams. 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 He denies RLS. He denies Migraines. He uses a mouth guard for bruxism and is a mouth breather. He has a strong gag reflux, blows his nose every single morning Phlegm, yet unable to clear the throat has an uncomfortable sensation and taste in his throat. Memory, mood and diet is good. He is trying to lose weight. His BP is elevated today 150/90. [facility] Medical History Overweight (BMI 25.0-29.9) Pure hypercholesterolemia Surgical History Hx of inguinal herniorrhaphy Hx of wisdom tooth extraction Social History Housing: House Alcohol intake: current Alcohol intake frequency: holidays/special occasions only Patient Tobacco Use Status: Never used Tobacco e-Cigarette/Vaping Use: Never Used service: Yes Current occupational status: employed Current occupational exposures/hazards: No Cognitive needs: No Hearing needs: No Vision needs: No Physical Exam Vital Signs: Last Vital Signs Pulse 63 05/04/24 15:02 BP 150/90 H 05/04/24 15:02 Pulse Ox 96 05/04/24 15:02 Oxygen Delivery Method Room Air 05/04/24 15:02 BMI result Body Mass Index 29.4 Const General: cooperative, comfortable and no acute distress Nutritional Appearance: average body habitus Orientation/consciousness: patient oriented x3 HEENT Face and sinus: Yes normal facial exam and Yes face symmetric Throat: Yes other ([place] score of 4) Eyes Pupils: Equal, round and reactive pupils present Neck Neck: Yes full ROM and Yes supple Resp Effort & Inspection: normal respiratory effort and able to speak in complete sentences Neuro General: patient oriented x3 and moves all extremities Cranial nerves: Yes CN's II-XII intact bilaterally, Yes Facial sensation intact/muscles of mastication intact, Yes Equal, round and reactive pupils present, Yes Normal accommodation reflex present, Yes Bilaterally intact EOM present, Yes Nystagmus not present, Yes Normal facial strength present, Yes Midline tongue present, Yes Ability to bilaterally rotate head present and Yes Ability to bilaterally elevate shoulders present Gait exam (Neuro): Normal gait present Motor exam (neuro): 5/5 motor strength present throughout and Normal motor muscle tone present throughout Deep tendon reflexes (DTR's): Right triceps reflex intensity grade: 2+, Left triceps reflex intensity grade: 2+, Rt Biceps (C5, C6): 2+, Left biceps reflex intensity grade: 2+, Right brachioradialis reflex intensity grade: 2+, Left brachioradialis reflex intensity grade: 2+, Right patellar reflex intensity grade: 2+ and Left patellar reflex intensity grade: 2+ Results Reviewed Results Reviewed: Labs from [facility] 04/15/2023 High Cholesterol 234 Assessment & Plan Assessment & Plan (1) Loud snoring: Code(s): R06.83 - Snoring Category: Medical (2) Phlegm in throat: Code(s): R09.89 - Other specified symptoms and signs involving the circulatory and respiratory systems Category: Medical Plan HST snoring, nose strips and mouth guard use daily. ENT evaluation of tonsils and adenoids Phlegm collection in back of throat F/u in 3 months Orders: Orders RT home sleep study Today G47.19 - Other hypersomnia Referrals Ear/Nose/Throat Referral R06.83 - Snoring, R09.89 - Other specified symptoms and signs involving the circulatory and respiratory systems Patient Instructions: Sleep Hygiene provided: set a scheduled bedtime and wake time to help regulate the circadian rhythm and balance the release of pituitary hormones. Sleep in a dark room, temperatures below 68 degrees, and no devices n bed. Limit caffeinated products 6 hours prior to bed, and limit fluids 2-4 hours prior to bed. Gentle night yoga, diffusing essential oils, and playing soft music can be relaxing. May use Magnesium 400mg PO daily for sleep. Recommend Diet and Lifestyle changes: HTN the number one modifiable risk factor of cardiovascular events is good management of bp. Recommend mediterranean and Dash diet along with exercise by elevating the heart rate beyond the 120 max for your age group 3-5x a week. Coding Level of Care Code New Pt Level 4 (55907) Diagnoses Loud snoring R06.83 Phlegm in throat R09.89 Time Spent (min) 30 Comment Evaluation Sleep Questionnaire Difficulty falling asleep: No Difficulty staying asleep?: No Number of arousals: 0 Snoring: Yes Witnessed apneas: No Gasping arousals: No Nocturia: No GERD: No Vivid dreams: Yes Acting out dreams: Yes Abnormal behavior in sleep: Yes Abnormal movements in sleep: No Morning headaches: No Excessive daytime sleepiness: No Daytime naps: No Restless legs: No Hallucinations: No Sleep paralysis: No Drop attacks: No Sleep Study: No CPAP: No
[2024-05-04 15:02] VITALS: BP 150/90; PULSE 63; O2SAT 96; BMI 29.4
--- OUTSIDE RECORDS SUMMARY | 2024-05-04 17:03 | XMS_ITS | Continuity of Care Document ---
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 Immunization Series Date Given Administered By Site Reaction Lot Number CVX Code Drug Light Out Examiner Status Comments Source influenza virus vaccine, inactivated 2023 RUSS Yanes caridad, left (delt oid) [id number] Seqirus, A [employer] complet ed influenza virus vaccine, inactivat ed 12/15/23 Given 8203R-1 04 MDG influenza, injectable, quadrivalent 2020 [id number] GlaxKitBoostKli ne complet ed influenza , injectabl e, quadrival ent 12/23/20 Given Ambulat ory Pharmac y COVID Vaccine Moderna 2020 [id number] 207 complet ed COVID Vaccine Moderna 03/28/20 Given Ambulat ory Pharmac y COVID Vaccine Moderna 2020 [id number] complet ed COVID Vaccine Moderna 02/29/20 Given Ambulat ory Pharmac y influenza, injectable, quadrivalent 2019 [id number] 158 complet ed influenza , injectabl e, quadrival ent 12/02/19 Given Ambulat ory Pharmac y influenza, injectable, quadrivalent- pf 2018 [id number] 150 Seqirus complet ed influenza , injectabl e, quadrival ent-pf 11/20/18 Given Ambulat ory Pharmac y typhoid Vi capsular polysaccharid e vac 2017 [id number] 101 sanofi pasteur complet ed typhoid Vi capsular polysacch aride vac 12/19/17 Given Ambulat ory Pharmac y anthrax vaccine 2017 [id number] Emergent Biosolutions complet ed anthrax vaccine 12/19/17 Given Ambulat ory Pharmac y influenza, injectable, quadrivalent 2017 [id number] Seqirus complet ed influenza , injectabl e, quadrival ent 11/29/17 Given Ambulat ory Pharmac y Influenza, inj, MDCK, quadrivalent- pf 2016 [id number] Seqirus complet ed Influenza , inj, MDCK, quadrival ent-pf 12/20/16 Given Ambulat ory Pharmac y influenza, seasonal, injectable-pf 2015 [id number] Seqirus complet ed influenza , seasonal, injectabl e-pf 12/23/15 Given Ambulat ory Pharmac y influenza, live, intranasal,qu adrivalent 2014 [id number] IDEA SPH[employer] Inc comple t ed influenza , live, intranasa l,quadriv alent 12/23/14 Given Ambulat ory Pharmac y influenza, injectable, quadrivalent- pf 2013 [id number] ID Biomedical comple t ed influenza , injectabl e, quadrival ent-pf 01/21/14 Given Ambulat ory Pharmac y typhoid Vi capsular polysaccharid e vac 2013 [id number] sanofi pasteur complet ed typhoid Vi capsular polysacch aride vac 02/27/13 Given Ambulat ory Pharmac y anthrax vaccine 2013 [id number] Emergent Biosolutions complet ed anthrax vaccine 02/27/13 Given Ambulat ory Pharmac y influenza, seasonal, injectable 2012 [id number] 141 CSL Behring complet ed influenza , seasonal, injectabl e 12/18/12 Given Ambulat ory Pharmac y tetanus, diphtheria, acellular pertu is 2011 [id number] 115 sanofi pasteur complet ed tetanus, diphtheri a, acellular pertussis 11/29/11 Given Ambulat ory Pharmac y influenza, seasonal, injectable 2011 [id number] 141 CSL Behring complet ed influenza , seasonal, injectabl e 11/29/11 Given Ambulat ory Pharmac y influenza, seasonal, injectable-pf 2010 [id number] 140 sanofi pasteur complet ed influenza , seasonal, injectabl e-pf 11/17/10 Given Ambulat ory Pharmac y tuberculin purified protein derivative 2010 [id number] sanofi pasteur complet ed tuberculi n purified protein derivativ e 05/04/10 Given Ambulat ory Pharmac y influenza virus vaccine,split 2009 [id number] 15 sanofi pasteur complet ed influenza virus vaccine,s plit 01/20/10 Given Ambulat ory Pharmac y anthrax vaccine 2009 [id number] Emergent Biosolutions complet ed anthrax vaccine 06/14/09 Given Ambulat ory Pharmac y Novel influenza-H1N 1-09, injectable 2009 [id number] 127 Novartis Pharmaceutica ls complet ed Novel influenza -N3F8-61, injectabl e 03/01/09 Given Ambulat ory Pharmac y vaccinia (smallpox) vaccine 2008 [id number] 75 Dream[employer] Foods complet ed vaccinia (smallpox ) vaccine 01/10/09 Given Ambulat ory Pharmac y anthrax vaccine 2008 [id number] Emergent Biosolutions complet ed anthrax vaccine 12/24/08 Given Ambulat ory Pharmac y influenza virus vaccine, live 2008 [id number] 111 Medimmune Inc comple t ed influenza virus vaccine, live 11/18/08 Given Ambulat ory Pharmac y typhoid Vi capsular polysaccharid e vac 2008 [id number] sanofi pasteur complet ed typhoid Vi capsular polysacch aride vac 11/18/08 Given Ambulat ory Pharmac y anthrax vaccine 2008 [id number] Emergent Biosolutions complet ed anthrax vaccine 11/18/08 Given Ambulat ory Pharmac y influenza virus vaccine, live 2007 [id number] 111 Medimmune Inc comple t ed influenza virus vaccine, live 12/18/07 Given Ambulat ory Pharmac y influenza virus vaccine, live 2007 [id number] 111 Medimmune Inc comple t ed influenza virus vaccine, live 02/20/07 Given Ambulat ory Pharmac y hepatitis A adult vaccine 2006 [id number] Merck & Company Inc complet ed hepatitis A adult vaccine 10/11/06 Given Ambulat ory Pharmac y hepatitis B adult vaccine 2006 [id number] 43 Merck & Company Inc complet ed hepatitis B adult vaccine 10/11/06 Given Ambulat ory Pharmac y hepatitis A-hepatitis B vaccine 2006 [id number] 104 GlaxoSmithKli ne complet ed hepatitis A-hepatit is B vaccine 05/02/06 Given Ambulat ory Pharmac y hepatitis A-hepatitis B vaccine 2006 [id number] 104 GlaxoSmithKli ne complet ed hepatitis A-hepatit is B vaccine 04/01/06 Given Ambulat ory Pharmac y meningococcal A,C,Y,W-135 (MCV4P) 2006 [id number] 114 sanofi pasteur complet ed meningoco ccal A,C,Y,W-1 35 (MCV4P) 03/26/06 Given Ambulat ory Pharmac y influenza virus vaccine,split 2006 [id number] 15 sanofi pasteur complet ed influenza virus vaccine,s plit 03/26/06 Given Ambulat ory Pharmac y poliovirus vaccine, inactivated 2006 [id number] 10 sanofi pasteur complet ed polioviru s vaccine, inactivat ed 03/26/06 Given Ambulat ory Pharmac y tetanus-dipht h toxoids (Td) adult/adol 2006 [id number] 09 sanofi pasteur complet ed tetanus-d iphth toxoids (Td) adult/ado l 03/26/06 Given Ambulat ory Pharmac y tuberculin purified protein derivative 2006 [id number] 96 sanofi pasteur complet ed tuberculi n purified protein derivativ e 03/26/06 Given Ambulat ory Pharmac y Results Combined list of recent chemistry, hematology [...] Prevention' s HIV diagnostic algorithm. Refer to [facility] Lab Guide for additional information : [email or web address] x Testing performed by Kim clinton [facility] Miscellan eous Sendouts Repository Sample Received (05/02/23 11:36 AM) 05/01 N [facility] Vital Signs Combined list of inpatient and outpatient Vital Signs from Department of Defense and Veterans Affairs, ranging from 12 months to all on record, depending upon the facility. Vital Sign Value Date Comments Source Peripheral Pulse Rate 90 bpm 05/02/2023 15:25:00 8203R-104 MDG Systolic Blood Pressure 134 mm[Hg] 05/02/2023 15:25:00 8203R-104 MDG Diastolic Blood Pressure 87 mm[Hg] 05/02/2023 15:25:00 8203R-104 MDG Mean Arterial Pressure, Calc 103 mm[Hg] 05/02/2023 15:25:0 0 8203R-104 MDG BP Site Right arm 05/02/2023 15:25:00 8203R -104 MDG Encounters Combined list of: 1) Encounters from Department of Veterans Affairs facilities going backup to the last 18 months, not all VA inpatient encounters are included; 2) Encounters from the Department of Defense facilities going backup to 280 months. Location Location Details Encounter Type Encounter Number Reason For Visit Attending Provider ADM Date DC Date Status Disposition Source 8203R-104 MDG Outpatient [id number] MARLI QUINONES 05/19 Discharge Disposition: Home or Self Care 8203R-1 04 MDG 8203R-104 MDG Care Not Rendered [id number] 06/07 Discharge Disposition: Home or Self Care 8203R-1 04 MDG 8203R-104 MDG Care Not Rendered [id number] 07/06 Discharge Disposition: Home or Self Care 8203R-1 04 MDG 8203R-104 MDG Between Visit [id number] 10/07 Discharge Disposition: Home or Self Care 8203R-1 04 G 8203R-104 G Mass Vaccine [id number] 12/14 8203R-1 04 MDG Procedures Combined list of: 1) Procedures from Department of Veterans Affairs facilities [facility], not all [place] non-surgical procedures are included; 2) All procedures from the Department of Defense facilities. Procedure Procedure Type Code Date Perfomer Comments Sourc e No data available for this section Ambulatory P harmacy Assessment and Plan Combined list of future care activities from Department of Defense and Veterans [facility] facilities (e.g., assessment and plan notes, appointments, orders, and referrals). Additional future care activities may be listed in the Plan of Care section. 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 Member is medically clear.? Member reports [...] H-2, L ear STS ? ? ? 05/04/2024 8203R-104 RODRIGO Functional Status Combined list of recent functional and cognitive assessments recorded at [facility] and [facility] [place] Functional [place] Measurement (FIM) Scale: 1 = Total Assistance (Subject = 0% +), 2 = Maximal Assistance (Subject = 25% +), 3 = Moderate Assistance (Subject = 50% +), 4 = Minimal Assistance (Subject = 75% +), 5 = Supervision, 6 = Modified [place] (Device), 7 = Complete [place] (Timely, Safely). Assessment Date/Time Source Assessment Type Assessment Skill Assessment Score Assessment Details No data available for this section
== END 2024-05-04 15:47 | disposition home or self-care (01) ==
LOC: HO.HSMS 14:54
PROVIDERS: PCP Internal Medicine; Visit Provider Physician Assistant Medical
DX: R06.83 Snoring (principal); R09.89 Other specified symptoms and signs involving the circulatory and respiratory systems
CPT/HCPCS: 99204

== ENCOUNTER → 2024-05-04 14:54 | Outpatient (BNVA) | payer OTHER, SELFPAY | PROVIDERS: PCP Internal Medicine; Visit Provider Physician Assistant Medical | DX: R06.83 Snoring (principal); R09.89 Other specified symptoms and signs involving the circulatory and respiratory systems | CPT/HCPCS: 99202 ==

== ENCOUNTER → 2024-07-20 15:49 | Outpatient (REF) | payer OTHER, SELFPAY ==
--- OUTSIDE RECORDS SUMMARY | 2024-07-20 15:52 | XMS_ITS | Continuity of Care Document ---
Author Name [facility] Organization [facility] Care Team Providers Care Sports Journalist Name Role Phone DOD-[facility] Unavailable Unavailable Problems Combined list of problems from Department of Defense and Veterans Affairs facilities. It does not include entries that were removed or entered in error. Problem Status Onset Date Problem Type Date of Resolution Comments Source ASSESSMENT, POST-DEPLOYMENT, DOCUMENTED ON [id number] Inactive 08/12/2018 Condition DoD SUPERFICIAL INJURY Inactive 06/14/2009 Condition DoD Dermatitis, unspecified Active Condition DoD Patient Education - Injury Prevention Inactive Condition DoD TONSILLITIS Inactive Condition DoD Allergies, Adverse Reactions, Alerts Combined list of allergies from Department of Defense and Veterans Affairs facilities. It does not include entries that were removed or entered in error. Substance Category Reaction Severity Reaction type Status Date Reported Comments Source No Known Allergies Drug allergy (disorder) active 04/16/2006 [place] [address] Immunizations Combined list of available immunizations from the Department of Defense and Veterans Affairs facilities. Immunization Series Date Given Administered By Site Reaction Lot Number CVX Code Drug Forest Aide Status Comments Source influenza virus vaccine, inactivated 2023 RUSS Yanes caridad, left (delt oid) [id number] [employer], A [employer] complet ed influenza virus vaccine, inactivat ed 12/15/23 Given 8203R-1 04 MDG Influenza, injectable, quadrivalent, preservative free 0 2021 [id number] 150 SmithKline (SKB) complet ed Influenza , injectabl e, quadrival ent, preservat cindy free DoD tetanus toxoid, reduced diphtheria toxoid, and acellular pertu is vaccine, adsorbed 2 2021 [id number] 115 Sanofi Pasteur (PMC) complet ed tetanus toxoid, reduced diphtheri a toxoid, and acellular pertussis vaccine, adsorbed DoD influenza, injectable, quadrivalent 2020 [id number] 158 GlaxoSmithKli ny complet ed influenza , injectabl e, quadrival ent 12/23/20 Given Ambulat ory Pharmac y influenza, injectable, quadrivalent, contains preservative 11 2020 [id number] 158 SmithKline (SKB) complet ed influenza , injectabl e, quadrival ent, contains preservat cindy DoD COVID Vaccine Moderna 2020 [id number] 207 complet ed COVID Vaccine Moderna 03/28/20 Given Ambulat ory Pharmac y SARS-COV-2 (COVID-19) vaccine, mRNA, spike protein, LNP, preservative free, 100 mcg or 50 mcg dose 2 2020 [id number] 207 Moderna US, Inc. (MOD) complet ed SARS-COV- 2 (COVID-19 ) vaccine, mRNA, spike protein, LNP, preservat cindy free, 100 mcg or 50 mcg dose DoD COVID Vaccine Moderna 2020 [id number] complet ed COVID Vaccine Moderna 02/29/20 Given Ambulat ory Pharmac y SARS-COV-2 (COVID-19) vaccine, mRNA, spike protein, LNP, preservative free, 100 mcg or 50 mcg dose 1 2020 [id number] 207 Moderna VersionEye, Inc. (MOD) complet ed SARS-COV- 2 (COVID-19 [...] cindy DoD influenza, injectable, quadrivalent- pf 2018 [id number] 150 Seqirus complet ed influenza , injectabl e, quadrival ent-pf 11/20/18 Given Ambulat ory Pharmac y Influenza, injectable, quadrivalent, preservative free 1 2018 [id number] 150 Seqirus (SEQ) complet ed Influenza , injectabl e, quadrival ent, preservat cindy free DoD typhoid Vi capsular polysaccharid e vac 2017 [id number] 101 sanofi pasteur complet ed typhoid Vi capsular polysacch aride vac 12/19/17 Given Ambulat ory Pharmac y anthrax vaccine 2017 [id number] 24 Emergent Biosolutions complet ed anthrax vaccine 12/19/17 Given Ambulat ory Pharmac y anthrax vaccine 5 2017 [id number] 24 [employer] [place] (MIP) complet ed anthrax vaccine DoD typhoid Vi capsular polysaccharid e vaccine 3 2017 [id number] 101 Sanofi Pasteur (PMC) complet ed typhoid [...] virus vaccine DoD influenza, injectable, quadrivalent 2017 [id number] 158 Seqirus complet ed influenza , injectabl e, quadrival ent 11/29/17 Given Ambulat ory Pharmac y influenza, injectable, quadrivalent, contains preservative 13 2017 [id number] 158 Seqirus (SEQ) comple t ed influenza , injectabl e, quadrival ent, contains preservat cindy DoD Influenza, inj, MDCK, quadrivalent- pf 2016 [id number] 171 Seqirus complet ed Influenza , inj, MDCK, quadrival ent-pf 12/20/16 Given Ambulat ory Pharmac y Influenza, injectable, Madin Alaina Canine Kidney, preservative free, quadrivalent 1 2016 [id number] 171 Seqirus (SEQ) comple t ed Influenza , injectabl e, Madin Alaina Canine Kidney, preservat cindy free, quadrival ent DoD influenza, seasonal, injectable-pf 2015 [id number] 140 Seqirus complet ed influenza , seasonal, injectabl e-pf 12/23/15 Given Ambulat ory Pharmac y Influenza, seasonal, injectable, preservative free 11 2015 [id number] 140 Seqirus (SEQ) comple t ed Influenza , seasonal, injectabl e, preservat cindy free DoD influenza, live, intranasal,qu adrivalent 2014 [id number] Medimmune Inc comple t ed influenza , live, intranasa l,quadriv alent 12/23/14 Given Ambulat ory Pharmac y influenza, live, intranasal, quadrivalent 10 2014 [id number] 149 MedIFlying Pig Digital, Inc. (MED) complet ed influenza , live, [...] Ambulat ory Pharmac y anthrax vaccine 2013 [id number] 24 Emergent Biosolutions complet ed anthrax vaccine 02/27/13 Given Ambulat ory Pharmac y anthrax vaccine 4 2013 [id number] 24 [employer] [place] (MIP) complet ed anthrax vaccine DoD typhoid Vi capsular polysaccharid e vaccine 1 2013 [id number] 101 Sanofi Pasteur (PMC) complet ed typhoid Vi capsular polysacch aride vaccine DoD influenza, seasonal, injectable 2012 [id number] 141 CSL Behring complet ed influenza , seasonal, injectabl e 12/18/12 Given Ambulat ory Pharmac y Influenza, seasonal, injectable 8 2012 [id number] 141 CSL Biotherapies, Inc. (CSL) complet ed Influenza , seasonal, injectabl e DoD tetanus, diphtheria, acellular pertu is 2011 [id number] 115 sanofi pasteur complet ed tetanus, diphtheri a, acellular pertussis 11/29/11 Given Ambulat ory Pharmac y influenza, seasonal, injectable 2011 [id number] 1A 141 CSL Behring complet ed influenza , seasonal, injectabl e 11/29/11 Given Ambulat ory Pharmac y tetanus toxoid, reduced diphtheria toxoid, and acellular pertu is vaccine, adsorbed 0 2011 [id number] 115 Sanofi Pasteur (PMC) complet ed tetanus toxoid, reduced diphtheri a toxoid, and acellular pertussis vaccine, adsorbed DoD Influenza, seasonal, injectable 7 2011 [id number] 141 [facility] Vasopharm, [employer]. ([facility]) complet ed Influenza , seasonal, injectabl e DoD influenza, seasonal, injectable-pf 2010 [id number] 140 sanofi pasteur complet ed influenza , seasonal, injectabl e-pf 11/17/10 Given Ambulat ory Pharmac y Influenza, seasonal, injectable, preservative free 1 2010 [id number] 140 Sanofi Pasteur (PMC) complet ed Influenza , seasonal, injectabl e, preservat cindy free DoD tuberculin purified protein derivative 2010 [id number] 96 sanofi pasteur complet ed tuberculi n purified protein derivativ e 05/04/10 Given Ambulat ory Pharmac y influenza virus vaccine,split 2009 [id number] 15 sanofi pasteur complet ed influenza virus vaccine,s plit 01/20/10 Given Ambulat ory Pharmac y influenza virus vaccine, split virus (incl. purified surface antigen)-reti red CODE 1 2009 [id number] 15 Sanofi Pasteur (PMC) complet ed influenza virus vaccine, split virus (incl. purified surface antigen)- retired CODE DoD anthrax vaccine 2009 [id number] 24 Emergent Biosolutions complet ed anthrax vaccine 06/14/09 Given Ambulat ory Pharmac y anthrax vaccine 3 2009 [id number] 24 [employer] [place] ([facility]) complet ed anthrax vaccine DoD Novel influenza-H1N 1-09, injectable 2009 [id number] 1 127 Novartis Pharmaceutica complet ed Novel influenza -R0M1-95, injectabl e 03/01/09 Given Ambulat ory Pharmac y Novel influenza-H1N 1-09, injectable 1 2009 [id number] 1 127 Novartis Pharmaceutica l [place]. (NOV) complet ed Novel influenza -F8N6-44, injectabl e DoD vaccinia (smallpox) vaccine 2008 VV04-00 3A 75 [employer] complet ed vaccinia (smallpox ) vaccine 01/10/09 Given Ambulat ory Pharmac y vaccinia (smallpox) vaccine 1 2008 VV04-00 3A 75 [facility] complet ed vaccinia (smallpox ) vaccine DoD anthrax vaccine 2008 [id number] 24 Emergent Biosolutions complet ed anthrax vaccine 12/24/08 Given Ambulat ory Pharmac y anthrax vaccine 2 2008 [id number] 24 [employer] [place] (MIP) complet ed anthrax vaccine DoD influenza virus vaccine, live 2008 [id number] 111 Medimmune Inc comple t ed influenza virus vaccine, live 11/18/08 Given Ambulat ory Pharmac y typhoid Vi capsular polysaccharid e vac 2008 [id number] 101 sanofi pasteur complet ed typhoid Vi capsular polysacch aride vac 11/18/08 Given Ambulat ory Pharmac y anthrax vaccine 2008 [id number] 24 Emergent Biosolutions complet ed anthrax vaccine 11/18/08 Given Ambulat ory Pharmac y anthrax vaccine 1 2008 [id number] 24 [employer] [place] (MIP) complet ed anthrax vaccine DoD typhoid Vi capsular polysaccharid e vaccine 1 2008 [id number] 101 Sanofi Pasteur (PMC) complet ed typhoid Vi capsular polysacch aride vaccine DoD influenza virus vaccine, live, attenuated, for intranasal use 1 2008 [id number] 111 MedIPicwingune, Inc. (MED) complet ed influenza virus vaccine, live, attenuate d, for intranasa l use DoD influenza virus vaccine, live 2007 [id number] 111 MediFlying Pig Digital Inc comple t ed influenza virus vaccine, live 12/18/07 Given Ambulat ory Pharmac y influenza virus vaccine, live, attenuated, for intranasal use 1 2007 [id number] 111 MedIPicwingune, Inc. (MED) complet ed influenza virus vaccine, live, attenuate d, for intranasa l use DoD influenza virus vaccine, live 2007 [id number] 111 Medimmune Inc comple t ed influenza virus vaccine, live 02/20/07 Given Ambulat ory Pharmac y influenza virus vaccine, live, attenuated, for intranasal use 1 2007 [id number] 111 MedImmune, Inc. (MED) complet ed influenza virus vaccine, live, attenuate d, for intranasa l use DoD hepatitis A adult vaccine 2006 [id number] 52 [...] B vaccine DoD meningococcal A,C,Y,W-135 (MCV4P) 2006 [id number] 114 sanofi pasteur complet ed meningoco ccal A,C,Y,W-1 35 (MCV4P) 03/26/06 Given Ambulat ory Pharmac y influenza virus vaccine,split 2006 [id number] 15 sanofi pasteur complet ed influenza virus vaccine,s plit 03/26/06 Given Ambulat ory Pharmac y poliovirus vaccine, inactivated 2006 Z0018 10 sanofi pasteur complet ed polioviru s vaccine, inactivat ed 03/26/06 Given Ambulat ory Pharmac y tetanus-dipht h toxoids (Td) adult/adol 2006 [id number] 09 sanofi pasteur complet ed tetanus-d iphth toxoids (Td) adult/ado l 03/26/06 Given Ambulat ory Pharmac y tuberculin purified protein derivative 2006 [id number] 96 sanofi pasteur complet ed tuberculi n purified protein derivativ e 03/26/06 Given Ambulat ory Pharmac y tetanus and diphtheria toxoids, adsorbed, preservative free, for adult use (2 Lf of tetanus toxoid and 2 Lf of diphtheria toxoid) 1 2006 [id number] 09 Sanofi Pasteur ([facility]) complet ed tetanus and diphtheri a toxoids, adsorbed, preservat cindy free, for adult use (2 Lf of tetanus toxoid and 2 Lf of diphtheri a toxoid) DoD poliovirus vaccine, inactivated 1 2006 [id number] 10 Sanofi Pasteur (PMC) complet ed polioviru s vaccine, inactivat ed DoD influenza virus vaccine, split virus (incl. purified surface antigen)-reti red CODE 1 2006 [id number] 15 Sanofi Pasteur (PMC) complet ed influenza virus vaccine, split virus (incl. purified surface antigen)- retired CODE DoD meningococcal polysaccharid e (groups A, C, Y and W-135) diphtheria toxoid conjugate vaccine (MCV4P) 1 2006 [id number] 114 Sanofi Pasteur (PMC) complet ed meningoco [...] Prevention' s HIV diagnostic algorithm. Refer to [facility] Lab Guide for additional information : [email or web address] x Testing performed by Kim jarrett. 5600A-U [employer] EPILAB Miscellan eous Sendouts Repository Sample Received (05/02/23 11:36 AM) 05/01 N 5600A-U [employer] EPILAB Vital Signs Combined list of inpatient [...] Date DC Date Status Disposition Source [place] [address](Tony [facility], Alex) OUTPATIENT [id number] Fever RODERICK SR 04/16 Released with Work/Duty Limitations FIORDALIZA [facility] [place] [address]([facility], [place]) [facility] Medical [facility] sical Therapy Clinic) OUTPATIENT [id number] [facility] OFELIA SORENSEN 05/21 Released w/o Limitations [employer](P hysical Therapy Clinic) Theater Facility OUTPATIENT [id number] 06/15 Released w/o Limitations [place] [facility] [address](AFN G 104 Med Sq-PH) OUTPATIENT [id number] Notes Entered by: TIM VINAYAKBRENDA ROSMERY GRANTINA 20 Dec 2016 1328 ------- ------- ------- ------- -- 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 FREIDA ELLIS 12/20 Released w/o Limitations [facility] [place] [address](A FN 104 Med Sq-PH) [place] [address](AFN G 104 Med Sq-FM) OUTPATIENT [id number] Notes Entered by: STU CHEUNG 29 Dec 2016 1147 ------- ------- ------- ------- -- STU LAUREN 12/29 Released w/o Limitations [facility] [place] [address](A FNG 104 Med Sq-FM) [place] [address](AFN G 104 Med Sq-FM) OUTPATIENT [id number] Notes Entered by: EMRE PADGETT 05 Oct 2017 1446 ------- ------- ------- ------- -- LYUBOV ALANIZ 10/05 Released w/o Limitations [facility] [place] [address](A FNG 104 Med Sq-FM) [place] [address](AFN G 104 Med Sq-FM) OUTPATIENT [id number] Notes Entered by: MALACHI LEUNG 22 Oct 2017 1017 ------- ------- ------- ------- -- FREIDA Rosa 10/22 [facility]itations [facility] [place] [address](A FNG 104 Med Sq-FM) [facility] [place] [address](AFN G 104 Med Sq-FM) OUTPATIENT [id number] Notes Entered by: LALO ALCARAZ R 19 Dec 2017 0948 ------- ------- ------- ------- -- Pre-[facility] JUVENTINO ALCARAZ 12/19 Released w/o Limitations [facility] [place] [address](A FNG 104 Med Sq-FM) Theater Facility OUTPATIENT [id number] Theater Provider 08/12 Released w/o Limitations Theater Facilit y [employer](Pollard scom [facility] Team A) OUTPATIENT [id number] DEVEN HAMMOND 10/08 Released w/o Limitations [facility](H anscom [facility] Team A) [facility] [place] [address](AFN G 104 Med Sq-FM) OUTPATIENT [id number] Notes Entered by: STU CHEUNG 03 Nov 2018 1005 ------- ------- ------- ------- -- STU LAUREN 11/03 Released w/o Limitations [facility] [place] [address](A FNG 104 Med Sq-FM) [place] [address](AFN G 104 Med Sq-FM) OUTPATIENT [id number] Notes Entered by: BRENDA VELASCO 19 Apr 2019 0826 ------- ------- ------- ------- -- 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 Bath 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 TIFFANIE Renee 04/18 Released w/o Limitations [facility] [place] [address](A FNG 104 Med Sq-FM) [place] [address](AFN G 104 Med Sq-FM) OUTPATIENT [id number] Notes Entered by: AKASH HERRING P 19 Apr 2019 1715 ------- ------- ------- ------- -- TIFFANIE RIZVI 04/18 [facility] Limitations [facility] [place] [address](A FNG 104 Med Sq-FM) [place] [address](AFN G 104 Med Sq-FM) OUTPATIENT [id number] Notes Entered by: STU CHEUNG 24 Mar 2020 1241 ------- ------- ------- ------- -- STU Sorto 03/24 Released w/o Limitations [facility] [place] [address](A FNG 104 Med Sq-FM) [place] [address](AFN G 104 Med Sq-FM) OUTPATIENT [id number] Notes Entered by: LALO ALCARAZ R 27 Apr 2020 1300 ------- ------- ------- ------- -- JUVENTINO AMEZQUITA R 04/27 Released w/o Limitations [facility] [place] [address](A FNG 104 Med Sq-FM) [place] [address](AFN G 104 Med Sq-FM) OUTPATIENT [id number] Notes Entered by: TIMOTEO MCKEON 27 Apr 2021 0632 ------- ------- ------- ------- -- Firefig hter STU Grant 04/27 Released w/[facility] Limitations [facility] [place] [address](A FNG 104 Med Sq-FM) [place] [address](AFN G 104 Med Sq-FM) OUTPATIENT [id number] STU CHEUNG 04/19 Released w/o Limitations [facility] [place] [address](A FNG 104 Med Sq-FM) [place] [address](AFN G 104 Med Sq-FM) OUTPATIENT [id number] Notes Entered by: MEGAN GARCIAADWOA Jared 19 Apr 2022 1729 ------- ------- ------- ------- -- SUSHANT Boudreaux 04/19 Released w/o Limitations [facility] [place] [address](A FNG 104 Med Sq-FM) 8203R-104 MDG Between Visit [id number] 10/07 Discharge Disposition: Home or Self Care 8203R-1 04 MDG 8203R-104 MDG Mass Vaccine [id number] 12/14 8203R-1 04 MDG 8203R-104 MDG Care Not Rendered [id number] 05/20 Discharge Disposition: Home or Self Care 8203R-1 04 MDG 8203R-104 MDG Care Not Rendered [id number] 06/28 Discharge Disposition: Home or Self Care 8203R-1 04 MDG Procedures Combined list of: 1) Procedures from Department of Veterans Affairs facilities [facility], not all VA non-surgical procedures are included; 2) All procedures from the Department of Defense facilities. Procedure Procedure Type Code Date Perfomer Comments Sourc e No data available for this section Ambulato ry Pharmacy THERAPEUTIC PROCEDURE(S), GROUP (2 OR MORE INDIVIDUALS) 7 DoD ADMINISTRATION OF PATIENT-FOCUSED HEALTH RISK ASSESSMENT INSTRUMENT (EG, HEALTH HAZARD APPRAISAL) WITH SCORING AND DOCUMENTATION, PER STANDARDIZED INSTRUMENT 9 DoD Physical Medicine - Group Physical Therapy Se ion Physical Medicine - Group Physical Therapy Session [id number] 7 OFELIA SORENSEN [facility] Screening Test Of Visual Acuity, Quantitative, Bilateral Screening Test Of Visual Acuity, Quantitative, Bilateral 13991 TIFFANIE HERRING [facility] Threshold Audiogram (Pure Tone) Threshold Audiogram (Pure Tone) 40250 TIFFANIE HERRING [facility] Spirometry Spirometry 76330 TIFFANIE HERRING [facility] Visual Function Screening Visual Function Screening 13012 SUSHANT WILSON [facility] Social History Combined list of available smoking, tobacco, and other social history from Department of Defense and Veterans Affairs facilities. Social History Type Response Date Comment Sourc e This section is an empty social history section. 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 Member is medically clear.? Member reports [...] H-2, L ear STS ? ? ? 07/20/2024 8203R-104 MDG Functional Status Combined list of recent functional and cognitive assessments recorded at Department of Defense and Veterans Affairs ([place] Functional [place] Measurement (FIM) Scale: 1 = Total Assistance (Subject = 0% +), 2 = Maximal Assistance (Subject = 25% +), 3 = Moderate Assistance (Subject = 50% +), 4 = Minimal Assistance (Subject = 75% +), 5 = Supervision, 6 = Modified [place] (Device), 7 = Complete [place] (Timely, Safely). Assessment Date/Time Source Assessment Type Assessment Skill Assessment Score Assessment Details No data available for this section
== END ==
LOC: HO.SL 15:49
PROVIDERS: PCP Internal Medicine; Visit Provider Physician Assistant Medical
DX: G47.19 Other hypersomnia (principal); R06.83 Snoring; R40.0 Somnolence
CPT/HCPCS: 95806

== ENCOUNTER → 2024-07-20 16:03 | Outpatient (BNV) | payer OTHER, SELFPAY | PROVIDERS: PCP Internal Medicine; Visit Provider Psychiatry & Neurology Neurology | DX: R06.83 Snoring (principal) | CPT/HCPCS: 95806 ==

== ENCOUNTER 2024-08-02 14:27 | Outpatient (AMB) | payer OTHER, SELFPAY ==
--- NOTE | 2024-08-02 14:30 | MHC.OFFVIS ---
Vital Signs 08/02/24 14:31 Height 5 ft 11 in Weight 209 lb 6 oz BMI 29.2 BP 130/80 Blood Pressure Location Lt brachial Position Sitting Pulse 85 Pulse Source Pulse Oximeter Pulse Oximetry (%) 98 Oxygen Delivery Method Room Air Intake Visit Reasons: 3 mo follow up Intake Note: Patient presents follow up Sleep. HST done 07/20 report not ready. Allergies No Known Allergies Allergy (Verified 08/02/24 14:33) HPI Comments Details: 39 year old r. handed male referred to us by Dr. Read, PCP. HST July 20 pending results. June 2024 ENT visit in [place] normal exam, no cysts or polyps or deviated septum, tonsils are normal. He goes to bed at 10pm and wakes up at 6am, no bathroom breaks. His told him he needs to be evaluated for snoring and moments of pauses in breathing which wake him up. He sleeps on his r. side then tosses to the back and starts to snore loudly, and makes a gurgling sound. He has tried nose strips, and they were not effective. He uses a mouth guard for bruxism and is a mouth breather. He has a strong gag reflux, blows his nose every single morning Phlegm, yet unable to clear the throat has an uncomfortable sensation and taste in his throat. He talks in his sleep, acts out his dream, and has vivid dreams. 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 He denies RLS. He denies Migraines. Memory, mood and diet is good. He is trying to lose weight. [facility] Medical History Overweight (BMI 25.0-29.9) Pure hypercholesterolemia Surgical History Hx of inguinal herniorrhaphy Hx of wisdom tooth extraction Social History Housing: House Alcohol intake: current Alcohol intake frequency: holidays/special occasions only Patient Tobacco Use Status: Never used Tobacco e-Cigarette/Vaping Use: Never Used service: Yes Current occupational status: employed Current occupational exposures/hazards: No Cognitive needs: No Hearing needs: No Vision needs: No Physical Exam Vital Signs: Last Vital Signs Pulse 85 08/02/24 14:31 BP 130/80 08/02/24 14:31 Pulse Ox 98 08/02/24 14:31 Oxygen Delivery Method Room Air 08/02/24 14:31 BMI result Body Mass Index 29.2 Const General: cooperative, comfortable and no acute distress Nutritional Appearance: average body habitus Orientation/consciousness: patient oriented x3 HEENT Face and sinus: Yes normal facial exam and Yes face symmetric Throat: Yes other ([place] score of 4) Eyes Pupils: Equal, round and reactive pupils present Neck Neck: Yes full ROM and Yes supple Resp Effort & Inspection: normal respiratory effort and able to speak in complete sentences Neuro General: patient oriented x3 and moves all extremities Cranial nerves: Yes CN's II-XII intact bilaterally, Yes Facial sensation intact/muscles of mastication intact, Yes Equal, round and reactive pupils present, Yes Normal accommodation reflex present, Yes Bilaterally intact EOM present, Yes Nystagmus not present, Yes Normal facial strength present, Yes Midline tongue present, Yes Ability to bilaterally rotate head present and Yes Ability to bilaterally elevate shoulders present Gait exam (Neuro): Normal gait present Motor exam (neuro): 5/5 motor strength present throughout and Normal motor muscle tone present throughout Results Reviewed Results Reviewed: pending hst results Assessment & Plan Assessment & Plan (1) Loud snoring: Code(s): R06.83 - Snoring Category: Medical (2) Fatigue: Code(s): R53.83 - Other fatigue Category: Medical Qualifiers: Fatigue type: chronic, unspecified Qualified Code(s): R53.82 - Chronic fatigue, unspecified (3) Excessive daytime sleepiness: Code(s): G47.19 - Other hypersomnia Category: Medical (4) Phlegm in throat: Code(s): R09.89 - Other specified symptoms and signs involving the circulatory and respiratory systems Category: Medical Plan HST snoring, nose strips and mouth guard use daily. Labs are pending. F/u in 3 months Patient Instructions: Sleep Hygiene provided: set a scheduled bedtime and wake time to help regulate the circadian rhythm and balance the release of pituitary hormones. Sleep in a dark room, temperatures below 68 degrees, and no devices n bed. Limit caffeinated products 6 hours prior to bed, and limit fluids 2-4 hours prior to bed. Gentle night yoga, diffusing essential oils, and playing soft music can be relaxing. Coding Level of Care Code Est Pt Level 4 (79576) Diagnoses Loud snoring R06.83 Chronic fatigue R53.82 Fatigue type: chronic, unspecified Excessive daytime sleepiness G47.19 Phlegm in throat R09.89 Time Spent (min) 20
[2024-08-02 14:31] VITALS: BP 130/80; PULSE 85; O2SAT 98; BMI 29.2
--- OUTSIDE RECORDS SUMMARY | 2024-08-02 16:46 | XMS_ITS | Continuity of Care Document ---
Author Name [facility] Organization [facility] Care Team Providers Care Telecom Sales Consultant Name Role Phone DOD-VA Unavailable Unavailable Problems Combined list of problems from Department of Defense and Veterans Affairs facilities. It does not include entries that were removed or entered in error. Problem Status Onset Date Problem Type Date of Resolution Comments Source ASSESSMENT[id number] Inactive 08/12/2018 Condition DoD SUPERFICIAL INJURY Inactive [...] Known Allergies Drug allergy (disorder) active 04/16/2006 [place] [address] Immunizations Combined list of available immunizations from the Department of Defense and Veterans Affairs facilities. Immunization Series Date Given Administered By Site Reaction Lot Number CVX Code Drug Returned Goods Inspector Status Comments Source influenza virus vaccine, inactivated 2023 RUSS Yanes caridad, left (delt oid) [id number] Velocent Systems, A Prim[employer]etics complet ed influenza virus vaccine, inactivat ed 12/15/23 Given 8203R-1 04 MDG Influenza, injectable, quadrivalent, preservative free 0 2021 [id number] 150 SmithKline (SKB) complet ed Influenza , injectabl e, quadrival ent, preservat cindy free DoD tetanus toxoid, reduced diphtheria toxoid, and acellular pertu is vaccine, adsorbed 2 2021 [id number] 115 Sanofi Pasteur (PMC) complet ed tetanus toxoid, reduced diphtheri a toxoid, and acellular pertussis vaccine, adsorbed DoD influenza, injectable, quadrivalent 2020 [id number] 158 GlaxoSmithKli nm complet ed influenza , injectabl e, quadrival ent 12/23/20 Given Ambulat ory Pharmac y influenza, injectable, quadrivalent, contains preservative 11 2020 [id number] 158 SmithKline (SKB) complet ed influenza , injectabl e, quadrival ent, contains preservat cindy DoD COVID Vaccine Moderna 2020 [id number] 207 complet ed COVID Vaccine Moderna 03/28/20 Given Ambulat ory Pharmac y SARS-COV-2 (COVID-19) vaccine, mRNA, spike protein, LNP, preservative free, 100 mcg or 50 mcg dose 2 2020 [id number] 207 Moderna US, Inc. (MOD) complet ed SARS-COV- 2 (COVID-19 ) vaccine, mRNA, spike protein, LNP, preservat cindy free, 100 mcg or 50 mcg dose DoD COVID Vaccine Moderna 2020 [id number] 207 complet ed COVID Vaccine Moderna 02/29/20 Given Ambulat ory Pharmac y SARS-COV-2 (COVID-19) vaccine, mRNA, spike protein, LNP, preservative free, 100 mcg or 50 mcg dose 1 2020 [id number] 207 Moderna Netseer, Inc. (MOD) complet ed SARS-COV- 2 (COVID-19 [...] cindy DoD influenza, injectable, quadrivalent- pf 2018 [id number] 150 Seqirus complet ed influenza , injectabl e, quadrival ent-pf 11/20/18 Given Ambulat ory Pharmac y Influenza, injectable, quadrivalent, preservative free 1 2018 [id number] 150 Seqirus (SEQ) complet ed Influenza , injectabl e, quadrival ent, preservat cindy free DoD typhoid Vi capsular polysaccharid e vac 2017 [id number] 101 sanofi pasteur complet ed typhoid Vi capsular polysacch aride vac 12/19/17 Given Ambulat ory Pharmac y anthrax vaccine 2017 [id number] 24 Emergent Biosolutions complet ed anthrax vaccine 12/19/17 Given Ambulat ory Pharmac y anthrax vaccine 5 2017 [id number] 24 [employer]gent Bio[employer] Operations [place] (MIP) complet ed anthrax vaccine DoD typhoid Vi capsular polysaccharid e vaccine 3 2017 [id number] 101 Sanofi Pasteur (PMC) complet ed typhoid [...] virus vaccine DoD influenza, injectable, quadrivalent 2017 [id number] 158 Seqirus complet ed influenza , injectabl e, quadrival ent 11/29/17 Given Ambulat ory Pharmac y influenza, injectable, quadrivalent, contains preservative 13 2017 [id number] 158 Seqirus (SEQ) comple t ed influenza , injectabl e, quadrival ent, contains preservat cindy DoD Influenza, inj, MDCK, quadrivalent- pf 2016 [id number] 171 Seqirus complet ed Influenza , inj, MDCK, quadrival ent-pf 12/20/16 Given Ambulat ory Pharmac y Influenza, injectable, Madin [place] Canine Kidney, preservative free, quadrivalent 1 2016 [id number] 171 Seqirus (SEQ) comple t ed Influenza , injectabl e, Madin [place] Canine Kidney, preservat cindy free, quadrival ent DoD influenza, seasonal, injectable-pf 2015 [id number] 140 Seqirus complet ed influenza , seasonal, injectabl e-pf 12/23/15 Given Ambulat ory Pharmac y Influenza, seasonal, injectable, preservative free 11 2015 [id number] 140 Seqirus (SEQ) comple t ed Influenza , seasonal, injectabl e, preservat cindy free DoD influenza, live, intranasal,qu adrivalent 2014 [id number] 149 Medimmune Inc comple t ed influenza , live, intranasa l,quadriv alent 12/23/14 Given Ambulat ory Pharmac y influenza, live, intranasal, quadrivalent 10 2014 [id number] 149 MedIGemmyo, Inc. (MED) complet ed influenza , live, [...] Ambulat ory Pharmac y anthrax vaccine 2013 [id number] Emergent Biosolutions complet ed anthrax vaccine 02/27/13 Given Ambulat ory Pharmac y anthrax vaccine 4 2013 [id number] 24 [employer] [place] (MIP) complet ed anthrax vaccine DoD typhoid Vi capsular polysaccharid e vaccine 1 2013 [id number] 101 Sanofi Pasteur (PMC) complet ed typhoid Vi capsular polysacch aride vaccine DoD influenza, seasonal, injectable 2012 [id number] 141 CSL Behring complet ed influenza , seasonal, injectabl e 12/18/12 Given Ambulat ory Pharmac y Influenza, seasonal, injectable 8 2012 [id number] 141 CSL Biotherapies, Inc. (CSL) complet ed Influenza , seasonal, injectabl e DoD tetanus, diphtheria, acellular pertu is 2011 [id number] 115 sanofi pasteur complet ed tetanus, diphtheri a, acellular pertussis 11/29/11 Given Ambulat ory Pharmac y influenza, seasonal, injectable 2011 [id number] 1A 141 CSL Behring complet ed influenza , seasonal, injectabl e 11/29/11 Given Ambulat ory Pharmac y tetanus toxoid, reduced diphtheria toxoid, and acellular pertu is vaccine, adsorbed 0 2011 [id number] 115 Sanofi Pasteur (PMC) complet ed tetanus toxoid, reduced diphtheri a toxoid, and acellular pertussis vaccine, adsorbed DoD Influenza, seasonal, injectable 7 2011 [id number] 141 [facility] Axiom Education, IQuum. ([facility]) complet ed Influenza , seasonal, injectabl e DoD influenza, seasonal, injectable-pf 2010 [id number] 140 sanofi pasteur complet ed influenza , seasonal, injectabl e-pf 11/17/10 Given Ambulat ory Pharmac y Influenza, seasonal, injectable, preservative free 1 2010 [id number] 140 Sanofi Pasteur (PMC) complet ed Influenza , seasonal, injectabl e, preservat cindy free DoD tuberculin purified protein derivative 2010 [id number] 96 sanofi pasteur complet ed tuberculi n purified protein derivativ e 05/04/10 Given Ambulat ory Pharmac y influenza virus vaccine,split 2009 [id number] 15 sanofi pasteur complet ed influenza virus vaccine,s plit 01/20/10 Given Ambulat ory Pharmac y influenza virus vaccine, split virus (incl. purified surface antigen)-reti red CODE 1 2009 [id number] 15 Sanofi Pasteur (PMC) complet ed influenza virus vaccine, split virus (incl. purified surface antigen)- retired CODE DoD anthrax vaccine 2009 [id number] 24 Emergent Biosolutions complet ed anthrax vaccine 06/14/09 Given Ambulat ory Pharmac y anthrax vaccine 3 2009 [id number] [employer] [place] ([facility]) complet ed anthrax vaccine DoD Novel influenza-H1N 1-09, injectable 2009 [id number] 1 127 Novartis Pharmaceutica complet ed Novel influenza -N6W8-33, injectabl e 03/01/09 Given Ambulat ory Pharmac y Novel influenza-H1N 1-09, injectable 1 2009 [id number] 1 127 Novartis Pharmaceutica l [place]. (NOV) complet ed Novel influenza -H4F1-38, injectabl e DoD vaccinia (smallpox) vaccine 2008 VV04-00 3A 75 Contour complet ed vaccinia (smallpox ) vaccine 01/10/09 Given Ambulat ory Pharmac y vaccinia (smallpox) vaccine 1 2008 VV04-00 3A 75 [facility] ([facility]) complet ed vaccinia (smallpox ) vaccine DoD anthrax vaccine 2008 [id number] 24 Emergent Biosolutions complet ed anthrax vaccine 12/24/08 Given Ambulat ory Pharmac y anthrax vaccine 2 2008 [id number] [employer] [place] (MIP) complet ed anthrax vaccine DoD influenza virus vaccine, live 2008 [id number] 111 Medimmune Inc comple t ed influenza virus vaccine, live 11/18/08 Given Ambulat ory Pharmac y typhoid Vi capsular polysaccharid e vac 2008 [id number] 101 sanofi pasteur complet ed typhoid Vi capsular polysacch aride vac 11/18/08 Given Ambulat ory Pharmac y anthrax vaccine 2008 [id number] 24 Emergent Biosolutions complet ed anthrax vaccine 11/18/08 Given Ambulat ory Pharmac y anthrax vaccine 1 2008 [id number] [employer] [place] (MIP) complet ed anthrax vaccine DoD typhoid Vi capsular polysaccharid e vaccine 1 2008 [id number] 101 Sanofi Pasteur (PMC) complet ed typhoid Vi capsular polysacch aride vaccine DoD influenza virus vaccine, live, attenuated, for intranasal use 1 2008 [id number] 111 MedIKnovelune, Inc. (MED) complet ed influenza virus vaccine, live, attenuate d, for intranasa l use DoD influenza virus vaccine, live 2007 [id number] 111 MediGemmyo Inc comple t ed influenza virus vaccine, live 12/18/07 Given Ambulat ory Pharmac y influenza virus vaccine, live, attenuated, for intranasal use 1 2007 [id number] 111 MedIKnovelune, Inc. (MED) complet ed influenza virus vaccine, live, attenuate d, for intranasa l use DoD influenza virus vaccine, live 2007 [id number] 111 Medimmune Inc comple t ed influenza virus vaccine, live 02/20/07 Given Ambulat ory Pharmac y influenza virus vaccine, live, attenuated, for intranasal use 1 2007 [id number] 111 MedImmune, Inc. (MED) complet ed influenza [...] B vaccine DoD meningococcal A,C,Y,W-135 (MCV4P) 2006 [id number] 114 sanofi pasteur complet ed meningoco ccal A,C,Y,W-1 35 (MCV4P) 03/26/06 Given Ambulat ory Pharmac y influenza virus vaccine,split 2006 [id number] 15 sanofi pasteur complet ed influenza virus vaccine,s plit 03/26/06 Given Ambulat ory Pharmac y poliovirus vaccine, inactivated 2006 Z0018 10 sanofi pasteur complet ed polioviru s vaccine, inactivat ed 03/26/06 Given Ambulat ory Pharmac y tetanus-dipht h toxoids (Td) adult/adol 2006 [id number] 09 sanofi pasteur complet ed tetanus-d iphth toxoids (Td) adult/ado l 03/26/06 Given Ambulat ory Pharmac y tuberculin purified protein derivative 2006 [id number] 96 sanofi pasteur complet ed tuberculi n purified protein derivativ e 03/26/06 Given Ambulat ory Pharmac y tetanus and diphtheria toxoids, adsorbed, preservative free, for adult use (2 Lf of tetanus toxoid and 2 Lf of diphtheria toxoid) 1 2006 [id number] 09 Sanofi Pasteur ([facility]) complet ed tetanus and diphtheri a toxoids, adsorbed, preservat cindy free, for adult use (2 Lf of tetanus toxoid and 2 Lf of diphtheri a toxoid) DoD poliovirus vaccine, inactivated 1 2006 [id number] 10 Sanofi Pasteur (PMC) complet ed polioviru s vaccine, inactivat ed DoD influenza virus vaccine, split virus (incl. purified surface antigen)-reti red CODE 1 2006 [id number] 15 Sanofi Pasteur (PMC) complet ed influenza virus vaccine, split virus (incl. purified surface antigen)- retired CODE DoD meningococcal polysaccharid e (groups A, C, Y and W-135) diphtheria toxoid conjugate vaccine (MCV4P) 1 2006 [id number] 114 Sanofi Pasteur (PMC) complet ed meningoco [...] Prevention' s HIV diagnostic algorithm. Refer to [facility] Lab Guide for additional information : [email or web address] x Testing performed by Kim jarrett. [employer] EPILAB Miscellan eous Sendouts Repository Sample Received (05/02/23 11:36 AM) 05/01 N [employer] EPILAB Vital Signs Combined list of inpatient [...] Date DC Date Status Disposition Source [place] [address](Tony [facility], Alex) OUTPATIENT [id number] Fever RODERICK SR 04/16 Released with Work/Duty Limitations FIORDALIZA [facility] [place] [address](Katie [facility], [place]) [facility] Medical [facility]) OUTPATIENT [id number] [facility] OFELIA SORENSEN 05/21 Released w/o Limitations [employer](P hysical Therapy Clinic) Theater Facility OUTPATIENT [id number] 06/15 Released w/o Limitations [place] [facility] [place] [address](AFN G 104 Med Sq-PH) OUTPATIENT [id number] Notes Entered by: TIM VINAYAKBRENDA ROSMERY GRANTINA 20 Dec 2016 1328 ------- ------- ------- ------- -- 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 FREIDA ELLIS 12/20 Released w/o Limitations [facility] [place] [address](A FN 104 Med Sq-PH) [place] [address](AFN G 104 Med Sq-FM) OUTPATIENT [id number] Notes Entered by: TSU CHEUNG 29 Dec 2016 1147 ------- ------- ------- ------- -- STU LAUREN 12/29 Released w/o Limitations [facility] [place] [address](A FNG 104 Med Sq-FM) [place] [address](AFN G 104 Med Sq-FM) OUTPATIENT [id number] Notes Entered by: EMRE PADGETT 05 Oct 2017 1446 ------- ------- ------- ------- -- LYUBOV ALANIZ 10/05 Released w/o Limitations [facility] [place] [address](A FNG 104 Med Sq-FM) [place] [address](AFN G 104 Med Sq-FM) OUTPATIENT [id number] Notes Entered by: MALACHI LEUNG 22 Oct 2017 1017 ------- ------- ------- ------- -- FREIDA Rosa 10/22 [facility] w[facility] Limitations [facility] [place] [address](A FNG 104 Med Sq-FM) [facility] Treatment [facility] [place] [address](AFN G 104 Med Sq-FM) OUTPATIENT [id number] Notes Entered by: LALO ALCARAZ R 19 Dec 2017 0948 ------- ------- ------- ------- -- [facility] JUVENTINO ALCARAZ 12/19 Released w/o Limitations [facility] [place] [address](A FNG 104 Med Sq-FM) Theater Facility OUTPATIENT [id number] Theater Provider 08/12 Released w/o Limitations Theater Facilit y [employer](Pollard scom [facility] Team A) OUTPATIENT [id number] DEVEN HAMMOND 10/08 Released w/o Limitations [facility](H anscom [facility] Team A) [facility] [address](AFN G 104 Med Sq-FM) OUTPATIENT [id number] Notes Entered by: STU CHEUNG 03 Nov 2018 1005 ------- ------- ------- ------- -- STU LAUREN 11/03 Released w/o Limitations [facility] [place] [address](A FNG 104 Med Sq-FM) [place] [address](AFN G 104 Med Sq-FM) OUTPATIENT [id number] Notes Entered by: BRENDA VELASCO 19 Apr 2019 0826 ------- ------- ------- ------- -- 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 TIFFANIE Renee 04/18 Released w/o Limitations [facility] [place] [address](A FNG 104 Med Sq-FM) [place] [address](AFN G 104 Med Sq-FM) OUTPATIENT [id number] Notes Entered by: AKASH HERRING P 19 Apr 2019 1715 ------- ------- ------- ------- -- TIFFANIE RIZVI 04/18 Released w/o Limitations [facility] [place] [address](A FNG 104 Med Sq-FM) [place] [address](AFN G 104 Med Sq-FM) OUTPATIENT [id number] Notes Entered by: STU CHEUNG 24 Mar 2020 1241 ------- ------- ------- ------- -- STU Sorto 03/24 Released w/o Limitations [facility] [place] [address](A FNG 104 Med Sq-FM) [place] [address](AFN G 104 Med Sq-FM) OUTPATIENT [id number] Notes Entered by: LALO ALCARAZ R 27 Apr 2020 1300 ------- ------- ------- ------- -- JUVENTINO AMEZQUITA R 04/27 Released w/o Limitations [facility] [place] [address](A FNG 104 Med Sq-FM) [place] [address](AFN G 104 Med Sq-FM) OUTPATIENT [id number] Notes Entered by: TIMOTEO MCKEON 27 Apr 2021 0632 ------- ------- ------- ------- -- Firefig hter STU Grant 04/27 [facility] Limitations [facility] [place] [address](A FNG 104 Med Sq-FM) [place] [address](AFN G 104 Med Sq-FM) OUTPATIENT [id number] STU CHEUNG 04/19 Released w/o Limitations [facility] [address](A FNG 104 Med Sq-FM) [place] [address](AFN G 104 Med Sq-FM) OUTPATIENT [id number] Notes Entered by: ADWOA DAVIS 19 Apr 2022 1729 ------- ------- ------- ------- -- SUSHANT Boudreaux 04/19 Released w/o Limitations [facility] [place] [address](A FNG 104 Med Sq-FM) 8203R-104 MDG Between Visit [id number] 10/07 Discharge Disposition: Home or Self Care 8203R-1 04 MDG 8203R-104 MDG Mass Vaccine [id number] 12/14 8203R-1 04 MDG 8203R-104 MDG Care Not Rendered [id number] 05/20 Discharge Disposition: Home or Self Care 8203R-1 04 MDG 8203R-104 MDG Care Not Rendered [id number] 06/28 Discharge Disposition: Home or Self Care 8203R-1 04 MDG Procedures Combined list of: 1) Procedures from Department of Veterans Affairs facilities going back up to [facility] 18 months, not all VA non-surgical procedures are included; 2) All procedures from the Department of Defense facilities. Procedure Procedure Type Code Date Perfomer Comments Sourc e No data available for this section Ambulato ry Pharmacy Physical Medicine - Group Physical Therapy Se ion Physical Medicine - Group Physical Therapy Session 16079 7 OFELIA SORENSEN Screening Test Of Visual Acuity, Quantitative, Bilateral Screening Test Of Visual Acuity, Quantitative, Bilateral 01703 TIFFANIE HERRING Threshold Audiogram (Pure Tone) Threshold Audiogram (Pure Tone) 65857 TIFFANIE HERRING Spirometry Spirometry 16974 TIFFANIE HERRING Visual Function Screening Visual Function Screening 23187 SUSHANT WILSON [facility] ADMINISTRATION OF PATIENT-FOCUSED HEALTH RISK ASSESSMENT INSTRUMENT (EG, HEALTH HAZARD APPRAISAL) WITH SCORING AND DOCUMENTATION, PER STANDARDIZED INSTRUMENT 9 [facility] THERAPEUTIC PROCEDURE(S), GROUP (2 OR MORE INDIVIDUALS) 7 [facility] Social History Combined list of available smoking, [...] Date: 05/02/23 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 Member is medically clear.? Member reports [...] H-2, L ear STS ? ? ? 08/02/2024 8203R-104 MDG Functional Status Combined list of recent functional and cognitive assessments recorded at Department of Defense and Veterans Affairs ([place] Functional [place] Measurement (FIM) Scale: 1 = Total Assistance (Subject = 0% +), 2 = Maximal Assistance (Subject = 25% +), 3 = Moderate Assistance (Subject = 50% +), 4 = Minimal Assistance (Subject = 75% +), 5 = Supervision, 6 = Modified [place] (Device), 7 = Complete [place] (Timely, Safely). Assessment Date/Time Source Assessment Type Assessment Skill Assessment Score Assessment Details No data available for this section
== END 2024-08-02 14:52 | disposition home or self-care (01) ==
LOC: HO.HSMS 14:27
PROVIDERS: PCP Internal Medicine; Visit Provider Physician Assistant Medical
DX: R06.83 Snoring (principal); R53.82 Chronic fatigue, unspecified; G47.19 Other hypersomnia; R09.89 Other specified symptoms and signs involving the circulatory and respiratory systems
CPT/HCPCS: 99214

== ENCOUNTER → 2024-08-02 14:27 | Outpatient (BNVA) | payer OTHER, SELFPAY | PROVIDERS: PCP Internal Medicine; Visit Provider Physician Assistant Medical | DX: R06.83 Snoring (principal); R53.82 Chronic fatigue, unspecified; R09.89 Other specified symptoms and signs involving the circulatory and respiratory systems; G47.19 Other hypersomnia | CPT/HCPCS: 99212 ==